=== PATIENT | male | born 1985 | race Caucasian/White ===

== ENCOUNTER 2016-08-11 20:22 | Emergency (ER) | payer SELFPAY ==
[~2016-08-11] VITALS: Ht 180.3 cm; Wt 79.8 kg
[~2016-08-11 20:22] MED LIST: AMOX875T PO; HYDR-971 PO; LORA-434 PO; LORA1TAB PO; MAGN296S PO; ONDA4TAB12 PO; PRED20TA PO
[2016-08-11 20:48] VITALS: BP 116/78
[2016-08-11] MEDS ORDERED: ASPIRIN 81 MG TAB.CHEW PO ONE (21:00)
--- NOTE | 2016-08-11 21:00 | PHYS DOC ---
General Chief Complaint: CHEST PAIN Stated Complaint: CHEST PAIN Time Seen by MD: 20:24 Source: patient, old records Exam Limitations: no limitations Problems: History of Present Illness Initial Comments Pt is 31/M to ED c/o chest tightness, congestion, and ear pain. Pt states for past 4 days he's had chest tightness/burning, some ALVARADO and dry cough. Also with left ear pain and nasal congestion/drainage. No fever/chills/ DUPONT/myalgia, has h/o anxiety took ativan at home no relief. Timing/Duration: constant (4 days) Severity: severe Associated Symptoms: chest pain, cough, other Allergies: Coded Allergies: No Known Drug Allergies (Unverified , 02/24/15) Past Medical History Medical History: no pertinent history Surgical History: noncontributory Psychosocial History: anxiety Social History Smoker: cigarettes, greater than 1 pack/day Alcohol: none Drugs: none Review of Systems Constitutional: denies chills, denies diaphoresis, denies fever, malaise EENTM: denies eye pain, ear paindenies ear discharge, nose congestiondenies throat swelling Respiratory: see HPI Cardiovascular: see HPI Gastrointestinal: denies abdominal pain, denies diarrhea, denies nausea, denies vomiting Genitourinary: denies dysuria, denies frequency, denies hematuria Musculoskeletal: denies back pain, denies joint swelling, denies neck pain Psychiatric/Neurological: denies headache, denies numbness, denies paresthesia Physical Exam General Appearance: no apparent distress Eyes: bilateral eye EOMI, bilateral eye PERRL, bilateral eye normal inspection Ear, Nose, Throat: hearing grossly normal, normal ENT inspection (L TM erythema ) Neck: non-tender, supple Respiratory: other (slight wheeze b/l with good air movement no resp distress) Cardiovascular: normal peripheral pulses, regular rate, rhythm Gastrointestinal: non tender, soft Back: no CVA tenderness, no vertebral tenderness Extremities: non-tender, normal inspection Neurologic/Psychiatric: 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 Pt expressed agreement/understanding with treatment plan. Departure Time of Disposition: 21:40 Disposition: 01 HOME, SELF-CARE Diagnosis: L otitis media, upper respiratory infection, tobac Condition: GOOD Patient Instructions: Otitis Media, Adult, Smoking Cessation, Tips For Success , Upper Respiratory Infection, Adult, [id number]-[id number] Additional Instructions: Drink plenty of fluids to avoid dehydration. Stop smoking, seek medical assistance if necessary. OTC tylenol as needed. OTC cetirizine am, diphenhydramine for evening symptoms. Rx: amoxil, flonase, albuterol Follow up with your doctor in 10 days for recheck. Return to ED with new or changing symptoms. FREDERICK FANG DO Aug 11, 2016 21:00
[2016-08-11 21:23] LABS: HEMOGLOBIN ISTAT 16.3 gm/dL; POTASSIUM ISTAT 3.7 mmol/L (3.5-5.0)
[2016-08-11] MEDS ORDERED: ALBU18HF IH (21:45)
[2016-08-11] MEDS ORDERED: AMOX875T PO (21:45)
[2016-08-11] MEDS ORDERED: FLUT9.9S NS (21:45)
[2016-08-11 21:58] LABS: BARBITURATES NEG (NEG); BENZODIAZEPINES NEG (NEG); CANNABINOIDS NEG (NEG); COCAINE NEG (NEG); METHADONE NEG (NEG); OPIATES NEG (NEG); PHENCYCLIDINE NEG (NEG)
[2016-08-11 21:59] LABS: AMPHETAMINE/METHAMPHETAMINE NEG (NEG)
[2016-08-11] MEDS ORDERED: CEFTRIAXONE IM 1 GM VIAL. IM ONE (22:00)
[2016-08-11 22:23] LABS: BILIRUBIN,URINE NEG (NEG); CLARITY,URINE HAZY; COLOR,URINE YELLOW; GLUCOSE,URINE NEG (NEG); NITRITE,URINE NEG (NEG); UROBILINOGEN,URINE 0.2 mg/dL (0.2 mg/dL)
[2016-08-11 22:24] LABS: BACTERIA,URINE 0 /HPF (0-FEW)
--- NOTE | 2016-08-12 09:13 | RAD ---
AP portable chest radiograph 08/11/2016 Clinical History: Shortness of breath and chest pain for a few days. An AP portable erect digital radiograph of the chest was obtained. Comparison study is dated 03/09/2013. The cardiac and mediastinal silhouettes are within normal limits in size and configuration. No acute pulmonary infiltrate is seen. No pleural effusion or pneumothorax is noted. The osseous structures are grossly intact. Impression: No acute abnormality is seen.
--- NOTE | 2016-08-13 11:57 | EKG ---
[address] [address] Test Date: 2016-08-11 Test Time: 20:37:05 Pat Name: PRATIK HUNT Department: Room: Gender: M [facility] [employer] Clerk: LIVIA : 1985 Requested By: FREDERICK FANG Order Number: [id number] Reading MD: Measurements Intervals [place] Rate: 85 P: 31 OK: 194 QRS: 57 QRSD: 90 T: 43 QT: 338 QTc: 402 Interpretive Statements SINUS RHYTHM NO SPECIFIC ECG ABNORMALITIES RI6.01 Unconfirmed report No previous ECG available for comparison
== END 2016-08-11 22:23 | disposition home or self-care (01) ==
LOC: ER 20:22
DX: J06.9 Acute upper respiratory infection, unspecified (principal); H66.92 Otitis media, unspecified, left ear; R07.9 Chest pain, unspecified; F17.210 Nicotine dependence, cigarettes, uncomplicated
CPT/HCPCS: 36415; 71010; 80047; 80305; 80320; 81001; 84484; 96372; 99285; J0696; G0480; G0481

== ENCOUNTER 2017-02-05 16:32 | Emergency (ER) | payer SELFPAY ==
[~2017-02-05] VITALS: Ht 180.3 cm; Wt 82.6 kg
[~2017-02-05 16:32] MED LIST changes: +ALBU18HF IH; +FLUT9.9S NS; -MAGN296S PO; +MAGN296S9 PO
[2017-02-05 16:45] VITALS: BP 130/82
[2017-02-05] MEDS ORDERED: LIDO:MAALOX 1:1 20 ML SINGLE DOSE PO ONE (17:15)
[2017-02-05] MEDS ORDERED: FAMOTIDINE 20 MG TABLET PO ONE (17:15)
[2017-02-05] MEDS ORDERED: FAMO-63 PO (17:20)
--- NOTE | 2017-02-05 17:20 | PHYS DOC ---
Past History Past Medical History: Anxiety Past Surgical History: No Surgical History Alcohol Use: None Drug Use: None Adult General Chief Complaint Chief Complaint: ABDOMINAL PAIN HPI HPI 32-year-old male comes to the emergency department today with epigastric abdominal pain for last 5 days. The burning sensation that is mild intermittent nonradiating without alleviating factors. He describes pain is sharp also. Currently mild. She reports increased pain with urination but denies polyuria. He denies nausea vomiting fevers or chills. Review of systems is negative for chest pain shortness of breath fevers chills nausea vomiting. All other review of systems is negative unless otherwise noted in history of present illness. ED course: 32-year-old male presenting with epigastric abdominal pain. Afebrile with normal vital signs. Pertinent physical exam:Soft nontender abdomen without rebound tenderness or guarding present. Negative McBurneys point. Negative Bowling sign. No ecchymosis present. Otherwise unremarkable exam. Early appy return precautions given. The patient was then discharged home in stable condition to follow up with their primary care physician over the next 2-3 days. They were to return if their symptoms worsened or if they were concerned for any reason. Hsli-[id number]-[id number] discharge instructions and return precautions were given. Patient's questions were answered to their satisfaction. Patient is comfortable plan. Review of Systems Review of Systems SEE ABOVE. Current Medications Current Medications Current Medications Medications (Trade) Dose Ordered Sig/Justice Start Time Stop Time Status Last Admin Dose Admin Famotidine (Pepcid) 20 mg 1X ONCE 02/05/17 17:15 02/05/17 17:16 Multi-Ingredient Mouthwash/Gargle (Gi Cocktail) 20 ml 1X ONCE 02/05/17 17:15 02/05/17 17:16 Allergies Allergies Allergies Coded Allergies Type Severity Reaction Last Updated Verified No Known Drug Allergies 02/24/15 No Physical Exam Physical Exam SEE ABOVE Constitutional: Well developed, well nourished, no acute distress, non-toxic appearance. [] HENT: Normocephalic, atraumatic, bilateral external ears normal, oropharynx moist, no oral exudates, nose normal. [] Eyes: PERRLA, EOMI, conjunctiva normal, no discharge. [] Neck: Normal range of motion, no tenderness, supple, no stridor. [] Cardiovascular:Heart rate regular rhythm, no murmur [] Lungs & Thorax: Bilateral breath sounds clear to auscultation [] Abdomen: Bowel sounds normal, soft, no tenderness, no masses, no pulsatile masses. [] Skin: Warm, dry, no erythema, no rash. [] Back: No tenderness, no CVA tenderness. [] Extremities: No tenderness, no cyanosis, no clubbing, ROM intact, no edema. [] Neurologic: Alert and oriented X 3, normal motor function, normal sensory function, no focal deficits noted. [] Psychologic: Affect normal, judgement normal, mood normal. [] Current Patient Data Vital Signs Vital Signs Date Time Temp Pulse Resp B/P (MAP) Pulse Ox O2 Delivery O2 Flow Rate FiO2 02/05/17 16:45 98.1 80 16 99 Room Air EKG EKG [] Radiology/Procedures Radiology/Procedures [] Course & Med Decision Making Course & Med Decision Making Pertinent Labs and Imaging studies reviewed. (See chart for details) [] Dragon Disclaimer Dragon Disclaimer This chart was dictated in whole or in part using Voice Recognition software in a busy, high-work load, and often noisy Emergency Department environment. It may contain unintended and wholly unrecognized errors or omissions. Departure Departure: Impression: Primary Impression: Abdominal pain Disposition: HOME, SELF-CARE Condition: STABLE Referrals: ALEXA REYNOLDS MD (PCP) Patient Instructions: Abdominal Pain, Abdominal Pain, Possible Early Appendicitis Additional Instructions: Thank you for allowing us to participate in your care today. Followup with your primary care physician in 3 days if your symptoms do not improve. Call your Primary Doctor tomorrow and inform them of your visit today. If you do not have a primary care provider you can ask for a list of our primary care providers. Return to the emergency department you have any new or concerning findings. This should be evaluated by the primary care physician and any necessary consulting services for continued management within a few days after discharge. Return to emergency room if you have any new or concerning symptoms including but not limited to fever, chills, nausea, vomiting, intractable pain, any new rashes, chest pain, shortness of air, uncontrolled bleeding, difficulty breathing, and/or vision loss. Scripts Famotidine (PEPCID) 20 Mg Tablet 1 TAB PO BID, #10 TAB 0 Refills Prov: TAWANNA VYAS MD 02/05/17 TAWANNA VYAS MD Feb 05, 2017 17:20
== END 2017-02-05 17:46 | disposition home or self-care (01) ==
LOC: ER 16:32
DX: R10.13 Epigastric pain (principal); R30.0 Dysuria; F41.9 Anxiety disorder, unspecified
CPT/HCPCS: 99283

== ENCOUNTER 2017-07-10 11:38 | Emergency (ER) | payer SELFPAY ==
[~2017-07-10] VITALS: Ht 180.3 cm; Wt 82.6 kg
[~2017-07-10 11:38] MED LIST changes: +FAMO-63 PO
[2017-07-10 12:43] LABS: BASO % 1 % (0-3); EOS # 0.1 x10^3/uL (0.0-0.7); EOS % 2 % (0-3); HEMATOCRIT 45.5 % (39.0-53.0); HEMOGLOBIN 15.6 g/dL (13.0-17.5); LYMPH # 1.7 x10^3/uL (1.0-4.8); LYMPH % 35 % (24-48); MEAN CORPUSCULAR HEMOGLOBIN 30 pg (25-35); MEAN CORPUSCULAR HGB CONC 34 g/dL (31-37); MEAN CORPUSCULAR VOLUME 88 fL (79-100); MONO # 0.4 x10^3/uL (0.0-1.1); MONO % 8 % (0-9); NEUT # 2.5 x10^3uL (1.8-7.7); NEUT % 53 % (31-73); PLATELET COUNT 211 x10^3/uL (140-400); RED BLOOD COUNT 5.18 x10^6/uL (4.30-5.70); RED CELL DISTRIBUTION WIDTH 13.9 % (11.5-14.5); WHITE BLOOD COUNT 4.7 x10^3/uL (4.0-11.0)
[2017-07-10 12:52] LABS: ALBUMIN/GLOBULIN RATIO 1.2 (1.0-1.7); GFR 87.2; MAGNESIUM 1.9 mg/dL (1.8-2.4); POTASSIUM 4.1 mmol/L (3.5-5.1); TOTAL BILIRUBIN 0.8 mg/dL (0.2-1.0); TOTAL PROTEIN 7.3 g/dL (6.4-8.2)
[2017-07-10 13:02] LABS: BARBITURATES NEG (NEG); BENZODIAZEPINES POS (NEG); CANNABINOIDS NEG (NEG); COCAINE NEG (NEG); METHADONE NEG (NEG); OPIATES NEG (NEG); PHENCYCLIDINE NEG (NEG)
[2017-07-10 13:03] LABS: AMPHETAMINE/METHAMPHETAMINE NEG (NEG)
[2017-07-10 13:08] LABS: CLARITY,URINE CLEAR; COLOR,URINE YELLOW; GLUCOSE,URINE NEG (NEG)
[2017-07-10 13:09] LABS: BACTERIA,URINE 0 /HPF (0-FEW); BILIRUBIN,URINE NEG (NEG); NITRITE,URINE NEG (NEG); RBC,URINE 0 /HPF (0-2); SQUAMOUS EPITHELIAL CELL,UR OCC /LPF; UROBILINOGEN,URINE 0.2 mg/dL (0.2 mg/dL); WBC,URINE OCC /HPF (0-4)
--- NOTE | 2017-07-10 13:43 | PHYS DOC ---
Past History Past Medical History: Anxiety Past Surgical History: No Surgical History Smoking: Non-smoker Alcohol Use: None Drug Use: None Adult General Chief Complaint Chief Complaint: ANXIETY/PANIC ATTACK HPI HPI 32-year-old male patient with history of longtime anxiety states he used to take lorazepam 1 mg several times a day since age of 15 and his physician recently was concern for dependency to benzodiazepine and was started Zoloft 2 days ago but since this morning she feels hot and shaky. Patient states he took 2 lorazepam this morning and is still has lorazepam at home. She denies suicidal and homicidal ideation and hallucination, nausea and vomiting, palpitation, shortness of breath. Review of Systems Review of Systems Constitutional: Denies fever or chills [] Eyes: Denies change in visual acuity, redness, or eye pain [] HENT: Denies nasal congestion or sore throat [] Respiratory: Denies cough or shortness of breath [] Cardiovascular: No additional information not addressed in HPI [] GI: Denies abdominal pain, nausea, vomiting, bloody stools or diarrhea [] : Denies dysuria or hematuria [] Musculoskeletal: Denies back pain or joint pain [] Integument: Denies rash or skin lesions [] Neurologic: Denies headache, focal weakness or sensory changes [] Endocrine: Denies polyuria or polydipsia [] All other systems were reviewed and found to be within normal limits, except as documented in this note. Allergies Allergies Allergies Coded Allergies Type Severity Reaction Last Updated Verified No Known Drug Allergies 02/24/15 No Physical Exam Physical Exam Constitutional: Well developed, well nourished,milde distress, non-toxic appearance, anxious. [] HENT: Normocephalic, atraumatic Eyes: PERRLA, EOMI, conjunctiva normal, no discharge. [] Neck: Normal range of motion, no tenderness, supple, no stridor. [] Cardiovascular:Heart rate regular rhythm, no murmur [] Lungs & Thorax: Bilateral breath sounds clear to auscultation [] Abdomen: Bowel sounds normal, soft, no tenderness, no masses, no pulsatile masses. [] Skin: Warm, dry, no erythema, no rash. [] Back: No tenderness, no CVA tenderness. [] Extremities: No tenderness, no cyanosis, no clubbing, ROM intact, no edema. [] Neurologic: Alert and oriented X 3, normal motor function, normal sensory function, no focal deficits noted. [] Psychologic: Anxious, judgement normal, mood normal. [] Current Patient Data Vital Signs Vital Signs Date Time Temp Pulse Resp B/P (MAP) Pulse Ox O2 Delivery O2 Flow Rate FiO2 07/10/17 12:47 72 18 136/87 (103) 99 Room Air 07/10/17 11:59 97.2 Lab Results Laboratory Tests Test 07/10/17 12:25 07/10/17 12:43 White Blood Count 4.7 x10^3/uL (4.0-11.0) Red Blood Count 5.18 x10^6/uL (4.30-5.70) Hemoglobin 15.6 g/dL (13.0-17.5) Hematocrit 45.5 % (39.0-53.0) Mean Corpuscular Volume 88 fL (79-100) Mean Corpuscular Hemoglobin 30 pg (25-35) Mean Corpuscular Hemoglobin Concent 34 g/dL (31-37) Red Cell Distribution Width 13.9 % (11.5-14.5) Platelet Count 211 x10^3/uL (140-400) Neutrophils (%) (Auto) 53 % (31-73) Lymphocytes (%) (Auto) 35 % (24-48) Monocytes (%) (Auto) 8 % (0-9) Eosinophils (%) (Auto) 2 % (0-3) Basophils (%) (Auto) 1 % (0-3) Neutrophils # (Auto) 2.5 x10^3uL (1.8-7.7) Lymphocytes # (Auto) 1.7 x10^3/uL (1.0-4.8) Monocytes # (Auto) 0.4 x10^3/uL (0.0-1.1) Eosinophils # (Auto) 0.1 x10^3/uL (0.0-0.7) Basophils # (Auto) 0.0 x10^3/uL (0.0-0.2) Sodium Level 139 mmol/L (136-145) Potassium Level 4.1 mmol/L (3.5-5.1) Chloride Level 103 mmol/L (98-107) Carbon Dioxide Level 32 mmol/L (21-32) Anion Gap 4 (6-14) L Blood Urea Nitrogen 16 mg/dL (8-26) Creatinine 1.0 mg/dL (0.7-1.3) Estimated GFR (Cockcroft-Gault) 87.2 BUN/Creatinine Ratio 16 (6-20) Glucose Level 122 mg/dL (70-99) H Calcium Level 9.0 mg/dL (8.5-10.1) Magnesium Level 1.9 mg/dL (1.8-2.4) Total Bilirubin 0.8 mg/dL (0.2-1.0) Aspartate Amino Transferase (AST) 17 U/L (15-37) Alanine Aminotransferase (ALT) 34 U/L (16-63) Alkaline Phosphatase 56 U/L (46-116) Total Protein 7.3 g/dL (6.4-8.2) Albumin 4.0 g/dL (3.4-5.0) Albumin/Globulin Ratio 1.2 (1.0-1.7) Ethyl Alcohol Level < 10 mg/dL (0-10) Urine Collection Type Unknown Urine Color Yellow Urine Clarity Clear Urine pH 6.5 Urine Specific [place] 1.020 Urine Protein Neg (NEG-TRACE) Urine Glucose (UA) Neg mg/dL (NEG) Urine Ketones (Stick) Neg mg/dL (NEG) Urine Blood Neg (NEG) Urine Nitrite Neg (NEG) Urine Bilirubin Neg (NEG) Urine Urobilinogen Dipstick 0.2 mg/dL (0.2 mg/dL) Urine Leukocyte Esterase Neg (NEG) Urine RBC 0 /HPF (0-2) Urine WBC Occ /HPF (0-4) Urine Squamous Epithelial Cells Occ /LPF Urine Bacteria 0 /HPF (0-FEW) Urine Mucus Mod /LPF Urine Opiates Screen Neg (NEG) Urine Methadone Screen Neg (NEG) Urine Barbiturates Neg (NEG) Urine Phencyclidine Screen Neg (NEG) Urine Amphetamine/Methamphetamine Neg (NEG) Urine Benzodiazepines Screen Pos (NEG) Urine Cocaine Screen Neg (NEG) Urine Cannabinoids Screen Neg (NEG) Urine Ethyl Alcohol Neg (NEG) EKG EKG [] Radiology/Procedures Radiology/Procedures [] Course & Med Decision Making Course & Med Decision Making Pertinent Labs reviewed. (See chart for details) Evaluation of patient in ER showed 32-year-old male patient with history of anxiety who was started on Zoloft 3 days ago. Patient complaining of feeling hot and anxious. Patient had unremarkable physical exam except for anxiety. Labs was unremarkable. Patient currently taking Xanax but asking for medication for anxiety and instructed to follow with his primary care physician. discharge: I've spoken with the patient and/or caregivers. I've explained the patient's condition, diagnosis and treatment plan based on information available to me at this time. I've answered the patient's and/or caregivers questions and addressed any concerns. The patient and/or caregivers have a good understanding the patient's diagnosis, condition and treatment plan as can be expected at this point. Vital signs have been stabilized. The patient's condition is stable for discharge from the emergency department. The patient will pursue further outpatient evaluation with her primary care provider or other designated consulting physician as outlined in the discharge instructions. Patient and/or caregivers are agreeable to this plan of care and follow-up instructions have been explained in detail. The patient and/or caregivers have received these instructions in written format and expressed understanding of these discharge instructions. The patient and her caregivers are aware that if any significant change in condition or worsening of symptoms should prompt him to immediately return to this of the closest emergency department. If an emergent department is not readily available I would encourage him to call 911. Rosannaon Disclaimer Dragon Disclaimer This electronic medical record was generated, in whole or in part, using a voice recognition dictation system. Departure Departure: Impression: Primary Impression: Anxiety Additional Impression: Intolerance of drug Disposition: HOME, SELF-CARE (at 1342) Condition: STABLE Referrals: ALEXA REYNOLDS MD (PCP) Patient Instructions: Anxiety and Panic Attacks Additional Instructions: Follow-up with your primary care physician in 1-2 days Return to ER if not getting better Problem Qualifiers FITZ QUINTERO MD Jul 10, 2017 13:43
[2017-07-10 13:59] VITALS: BP 132/80
== END 2017-07-10 14:00 | disposition home or self-care (01) ==
LOC: ER 11:38
DX: F41.9 Anxiety disorder, unspecified (principal); T43.225A Adverse effect of selective serotonin reuptake inhibitors, initial encounter; Y92.89 Other specified places as the place of occurrence of the external cause
CPT/HCPCS: 36415; 80053; 80307; 81001; 83735; 85025; 99284; G0480; G0479

== ENCOUNTER 2017-08-07 20:21 | Emergency (ER) | payer SELFPAY ==
[~2017-08-07] VITALS: Ht 180.3 cm; Wt 78.6 kg
[2017-08-07 21:00] VITALS: BP 122/68
--- NOTE | 2017-08-07 22:22 | PHYS DOC ---
Past History Past Medical History: Anxiety Past Surgical History: No Surgical History Smoking: Non-smoker Alcohol Use: None Drug Use: None Adult General Chief Complaint Chief Complaint: SHORTNESS OF BREATH HPI HPI 32-year-old male with a history of tobacco abuse and severe anxiety for which he takes a benzodiazepine now presents to the emergency department complaining of anxiety. He denies depression and has no suicidality. After being placed in a room patient told the nurse that he had some left chest wall soreness with cough. He is a chronic tobacco user and has had some nonproductive cough recently. Patient has no high blood pressure high cholesterol diabetes or family history of coronary artery disease or cardiac at young age. He's had no syncope or near syncope no exertional symptoms whatsoever. Denies pleuritic pain. Pain is worse with cough and movement. Review of Systems Review of Systems Constitutional: Denies fever or chills [] Eyes: Denies change in visual acuity, redness, or eye pain [] HENT: Denies nasal congestion or sore throat [] Respiratory: Denies cough or shortness of breath [] Cardiovascular: No additional information not addressed in HPI [] GI: Denies abdominal pain, nausea, vomiting, bloody stools or diarrhea [] : Denies dysuria or hematuria [] Musculoskeletal: Denies back pain or joint pain [] Integument: Denies rash or skin lesions [] Neurologic: Denies headache, focal weakness or sensory changes [] Endocrine: Denies polyuria or polydipsia [] All other systems were reviewed and found to be within normal limits, except as documented in this note. Allergies Allergies Allergies Coded Allergies Type Severity Reaction Last Updated Verified No Known Drug Allergies 02/24/15 No Physical Exam Physical Exam Constitutional: Well developed, well nourished, no acute distress, non-toxic appearance. [] HENT: Normocephalic, atraumatic, bilateral external ears normal, oropharynx moist, no oral exudates, nose normal. [] Eyes: PERRLA, EOMI, conjunctiva normal, no discharge. [] Neck: Normal range of motion, no tenderness, supple, no stridor. [] Cardiovascular:Heart rate regular rhythm, no murmur [] Lungs & Thorax: Bilateral breath sounds clear to auscultation [] Abdomen: Bowel sounds normal, soft, no tenderness, no masses, no pulsatile masses. [] Skin: Warm, dry, no erythema, no rash. [] Back: No tenderness, no CVA tenderness. [] Extremities: No tenderness, no cyanosis, no clubbing, ROM intact, no edema. [] Neurologic: Alert and oriented X 3, normal motor function, normal sensory function, no focal deficits noted. [] Psychologic: Affect normal, judgement normal, mood normal. [] Current Patient Data Vital Signs Vital Signs Date Time Temp Pulse Resp B/P (MAP) Pulse Ox O2 Delivery O2 Flow Rate FiO2 08/07/17 20:21 97.8 76 16 100 Room Air EKG EKG EKG with normal sinus rhythm normal axis no tachycardia no STEMI interpreted by me[] Radiology/Procedures Radiology/Procedures [] Course & Med Decision Making Course & Med Decision Making Pertinent Labs and Imaging studies reviewed. (See chart for details) Signs and symptoms consistent with significant anxiety component of patient's presentation with what appears to be very mild chest wall pain secondary to occasional cough. EKG benign. Patient with no evidence of acute coronary syndrome or pleuritic pain. Vital signs are unremarkable. Normal respiratory rate and pulse ox and clear lungs bilaterally. No further workup or treatment is indicated at this time. Patient aware to follow-up with PCP and he is and his significant other agree with this plan. Strict return precautions given [] Dragon Disclaimer Dragon Disclaimer This electronic medical record was generated, in whole or in part, using a voice recognition dictation system. Departure Departure: Impression: Primary Impression: Anxiety Additional Impressions: Tobacco abuse Chest wall pain Cough in adult Disposition: 01 HOME, SELF-CARE Condition: GOOD Referrals: ALEXA REYNOLDS MD (PCP) Patient Instructions: Anxiety and Panic Attacks, Lszv-vw-Stwn, Smoking Cessation, Tips For Success Additional Instructions: It appears that you've been experiencing an anxiety attack this evening. Take your anxiety medication as previously prescribed as needed. It's critically important that you quit smoking to optimize your long-term health. If you have cough use Mucinex DM [id number] medication. He have any discomfort from cough take ibuprofen every 6 hours. Follow-up with your doctor tomorrow and return immediately for new severe worsening symptoms Problem Qualifiers MARGAUX MERCADO MD Aug 07, 2017 22:22
--- NOTE | 2017-08-08 00:09 | EKG ---
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
== END 2017-08-07 22:19 | disposition home or self-care (01) ==
LOC: ER 20:21
DX: F41.9 Anxiety disorder, unspecified (principal); Z72.0 Tobacco use
CPT/HCPCS: 93005; 99284

== ENCOUNTER → 2017-08-26 | Outpatient (CLI) | payer SELFPAY ==
[2017-08-07 21:00] VITALS: BP 122/68
--- NOTE | 2017-08-26 10:38 | CARD ---
MR#: [id number] Date of Study: 08/26/2017 Ordering Physician: JESSICA ESPINOZA, Referring Physician: JESSICA ESPINOZA, Tech: ZAFAR Tavares APPROVED REPORT EXAM: Two-dimensional and M-mode echocardiogram with Doppler and color Doppler. Other Information Quality : Good INDICATION Palpitations Dyspnea 2D DIMENSIONS Left Atrium(2D)3.4 (1.6-4.0cm)IVSd1.0 (0.7-1.1cm) Aortic Root(2D)2.8 (2.0-3.7cm)LVDd4.4 (3.9-5.9cm) LVOT Diameter2.3 (1.8-2.4cm)IVSs1.0 (0.8-1.2cm) LVDs2.5 (2.5-4.0cm)FS (%) 26.0 % SV67.0 mlLVEF(%)53.0 (>50%) Mitral Valve MV E Bfwehuvx00.1cm/sMV DECEL [id number] MV A Oxkfkusa02.7cm/sE/A Ratio1.2 Tricuspid Valve TR P. [id number]/sRAP [id number] TR Peak Gr.[id number] LEFT VENTRICLE The left ventricle is normal size. There is normal left ventricular wall thickness. The Ejection Frac tion is 50-55%. There is normal LV segmental wall motion. The left ventricular diastolic function and filling is normal for age. RIGHT VENTRICLE The right ventricle is normal size. There is normal right ventricular wall thickness. The right ventr icular systolic function is normal. ATRIA The left atrium size is normal. The right atrium size is normal. The interatrial septum is intact wit h no evidence for an atrial septal defect or patent foramen ovale as noted on 2-D or Doppler imaging. AORTIC VALVE The aortic valve is trileaflet. Doppler and Color Flow revealed trace aortic regurgitation. There is no significant aortic valvular stenosis. MITRAL VALVE The mitral valve is normal in structure and function. There is no evidence of mitral valve prolapse. There is no mitral valve stenosis. Doppler and Color Flow revealed no mitral valve regurgitation note d. TRICUSPID VALVE The tricuspid valve is normal in structure and function. Doppler and Color Flow revealed trace tricus pid regurgitation. There is no tricuspid valve stenosis. PULMONIC VALVE The pulmonic valve is not well visualized. Doppler and Color Flow revealed no pulmonic valvular regur gitation. There is no pulmonic valvular stenosis. GREAT VESSELS The aortic root is normal in size. The IVC is normal in size and collapses >50% with inspiration. PERICARDIAL EFFUSION There is no pleural effusion. There is no evidence of significant pericardial effusion. Critical Notification Critical Value: No <Conclusion> The Ejection Fraction is 50-55%. There is normal LV segmental wall motion. Signed by : Jessica Espinoza, Electronically Approved : 08/26/2017 10:36:58
== END | disposition home or self-care (01) ==
LOC: ECHO 08:34
PROVIDERS: ATTEND Internal Medicine Cardiovascular Disease
DX: R00.2 Palpitations (principal); R06.09 Other forms of dyspnea
CPT/HCPCS: 93306

== ENCOUNTER 2017-10-04 12:08 | Emergency (ER) | payer SELFPAY ==
--- NOTE | 2017-10-04 12:44 | PHYS DOC ---
Past History Past Medical History: Anxiety Past Surgical History: No Surgical History Smoking: Non-smoker Alcohol Use: None Drug Use: None Adult General Chief Complaint Chief Complaint: COUGH HPI HPI 32-year-old male presents with 2 day history of cough and shortness of breath. He states that he feels like he has no energy. This is unusual for him. He has had a cough that is productive of dark colored sputum. He denies fever or chills. He denies chest pain. Does admit to a chest tightness that comes and goes and is worse with exertion. This is only been the last 2 days. Patient is a smoker for 18 years. He denies diaphoresis, nausea, vomiting, diarrhea, constipation. Review of Systems Review of Systems Constitutional: Denies fever or chills [] Eyes: Denies change in visual acuity, redness, or eye pain [] HENT: Denies nasal congestion or sore throat [] Respiratory: Has productive cough and mild shortness of breath [] Cardiovascular: No additional information not addressed in HPI [] GI: Denies abdominal pain, nausea, vomiting, bloody stools or diarrhea [] : Denies dysuria or hematuria [] Musculoskeletal: Denies back pain or joint pain [] Integument: Denies rash or skin lesions [] Neurologic: Denies headache, focal weakness or sensory changes [] Endocrine: Denies polyuria or polydipsia [] All other systems were reviewed and found to be within normal limits, except as documented in this note. Current Medications Current Medications Current Medications Medications (Trade) Dose Ordered Sig/Justice Start Time Stop Time Status Last Admin Dose Admin Sodium Chloride 1,000 ml @ 1,000 mls/hr Q1H 10/04/17 12:23 10/04/17 13:22 UNV Allergies Allergies Allergies Coded Allergies Type Severity Reaction Last Updated Verified No Known Drug Allergies 02/24/15 No Physical Exam Physical Exam Constitutional: Well developed, well nourished, no acute distress, non-toxic appearance. [] HENT: Normocephalic, atraumatic, bilateral external ears normal, oropharynx moist, no oral exudates, nose normal. [] Eyes: PERRLA, EOMI, conjunctiva normal, no discharge. [] Neck: Normal range of motion, no tenderness, supple, no stridor. [] Cardiovascular:Heart rate regular rhythm, no murmur [] Lungs & Thorax: Bilateral breath sounds clear to auscultation [] Abdomen: Bowel sounds normal, soft, no tenderness, no masses, no pulsatile masses. [] Skin: Warm, dry, no erythema, no rash. [] Back: No tenderness, no CVA tenderness. [] Extremities: No tenderness, no cyanosis, no clubbing, ROM intact, no edema. [] Neurologic: Alert and oriented X 3, normal motor function, normal sensory function, no focal deficits noted. [] Psychologic: Affect normal, judgement normal, mood normal. [] Current Patient Data Vital Signs Vital Signs Date Time Temp Pulse Resp B/P (MAP) Pulse Ox O2 Delivery O2 Flow Rate FiO2 10/04/17 12:15 97.7 73 18 96 Room Air EKG EKG [] Radiology/Procedures Radiology/Procedures CHEST PA LATERAL Clinical indications: Cough with short of breath and weakness x 2-3 days, pt shielded COMPARISON: August 11, 2016. Findings: No acute lung infiltrate or pleural effusion or pulmonary edema or lung mass or pneumothorax is seen. The heart size, pulmonary vasculature, mediastinum and both rosales are unremarkable. The osseous structures appear intact. Impression: No acute radiographic abnormality is seen. Electronically signed by: Sal Corado MD (10/04/2017 1:02 PM) [facility][] Course & Med Decision Making Course & Med Decision Making Pertinent Labs and Imaging studies reviewed. (See chart for details) The patient's labs are unremarkable. His chest x-rays negative. I believe he is either having complications from his smoking, or he is coming down with a viral illness. He is stable for discharge. [] Dragon Disclaimer Dragon Disclaimer This electronic medical record was generated, in whole or in part, using a voice recognition dictation system. Departure Departure: Referrals: ALEXA REYNOLDS MD (PCP) LETICIA MASTERSON DO Oct 04, 2017 12:44
--- NOTE | 2017-10-04 12:57 | EKG ---
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
[2017-10-04] MEDS: IV NORMAL SALINE 1,000ML 1,000 ML IV SCH (13:00)
--- NOTE | 2017-10-04 13:06 | RAD ---
CHEST PA LATERAL Clinical indications: Cough with short of breath and weakness x 2-3 days, pt shielded COMPARISON: August 11, 2016. Findings: No acute lung infiltrate or pleural effusion or pulmonary edema or lung mass or pneumothorax is seen. The heart size, pulmonary vasculature, mediastinum and both rosales are unremarkable. The osseous structures appear intact. Impression: No acute radiographic abnormality is seen. Electronically signed by: Sal Corado MD (10/04/2017 1:02 PM) [facility]
[2017-10-04 13:11] LABS: BASO % 0 % (0-3); EOS # 0.1 x10^3/uL (0.0-0.7); EOS % 2 % (0-3); HEMATOCRIT 47.3 % (39.0-53.0); HEMOGLOBIN 16.2 g/dL (13.0-17.5); LYMPH # 1.9 x10^3/uL (1.0-4.8); LYMPH % 39 % (24-48); MEAN CORPUSCULAR HEMOGLOBIN 30 pg (25-35); MEAN CORPUSCULAR HGB CONC 34 g/dL (31-37); MEAN CORPUSCULAR VOLUME 88 fL (79-100); MONO # 0.4 x10^3/uL (0.0-1.1); MONO % 9 % (0-9); NEUT # 2.4 x10^3uL (1.8-7.7); NEUT % 49 % (31-73); PLATELET COUNT 220 x10^3/uL (140-400); RED BLOOD COUNT 5.36 x10^6/uL (4.30-5.70); RED CELL DISTRIBUTION WIDTH 12.9 % (11.5-14.5); WHITE BLOOD COUNT 4.9 x10^3/uL (4.0-11.0)
[2017-10-04 13:16] LABS: CALCIUM 9.1 mg/dL (8.5-10.1); GFR 87.2; POTASSIUM 3.8 mmol/L (3.5-5.1)
[2017-10-04 13:36] VITALS: BP 106/59
== END 2017-10-04 13:37 | disposition home or self-care (01) ==
LOC: ER 12:08
DX: B34.9 Viral infection, unspecified (principal); F41.9 Anxiety disorder, unspecified
CPT/HCPCS: 36415; 71046; 80048; 85025; 93005; 96360; 99285-25; J7030

== ENCOUNTER 2018-03-07 11:36 | Emergency (ER) | payer SELFPAY ==
[~2018-03-07] VITALS: Ht 180.3 cm; Wt 82.6 kg
[~2018-03-07 11:36] MED LIST changes: +LORA-254 PO; -LORA-434 PO; -LORA1TAB PO
[2018-03-07 11:45] VITALS: BP 127/72
--- NOTE | 2018-03-07 12:06 | ED.ADGEN ---
Past History Past Medical History: Anxiety, Depression, Other Past Surgical History: No Surgical History Smoking: Non-smoker Alcohol Use: None Drug Use: None Adult General Chief Complaint Chief Complaint Left knee pain HPI HPI Patient is a 33-year-old male presents with left knee pain after being stuck with a locust thorn yesterday afternoon while kneeling. Patient states he was able to remove intact thorn from the lower medial suprapatellar region. Reports deep pain with palpation, movement. On left knee exam, the patient does not have any deformity, swelling and inflammation over joint capsule, there is approximately 0.5 cm area over the medial suprapatellar ED physician consistent with puncture wound. There is minimal erythema, no induration, drainage or swelling to this region. Patient reports pain with range of motion and weightbearing. No other acute symptoms or complaints. Tetanus is up-to-date.[] Review of Systems Review of Systems ReView symptoms as per history of present illness. All other systems were reviewed and found to be within normal limits, except as documented in this note. Allergies Allergies Allergies Coded Allergies Type Severity Reaction Last Updated Verified No Known Drug Allergies 02/24/15 No Physical Exam Physical Exam Constitutional: Well developed, well nourished, no acute distress, non-toxic appearance. Skin: Warm, dry, no erythema, no rash. [] Back: No tenderness, no CVA tenderness. [] Extremities: Left knee, no deformity, swelling, tenderness or inflammation over joint capsule, there is approximately 0.5 cm area over the medial suprapatellar ED physician consistent with puncture wound. There is minimal erythema, no induration, drainage or swelling to this region [] Neurologic: Alert and oriented X 3, normal motor function, normal sensory function, no focal deficits noted. [] Current Patient Data Vital Signs Vital Signs Date Time Temp Pulse Resp B/P (MAP) Pulse Ox O2 Delivery O2 Flow Rate FiO2 03/07/18 11:45 Room Air 03/07/18 11:45 98.7 93 20 98 EKG EKG [] Radiology/Procedures Radiology/Procedures [Left knee x-ray:] Course & Med Decision Making Course & Med Decision Making Pertinent Labs and Imaging studies reviewed. (See chart for details) [Patioent decided he did not wish to wait for the x-ray decided to leave the emergency department AGAINST MEDICAL ADVICE prior to review of x-ray and prior to prescribing antibiotics. He prefers to follow-up with his primary care provider.] Final Impression Final Impression [Left knee injury] Lei Disclaimer Lei Disclaimer This electronic medical record was generated, in whole or in part, using a voice recognition dictation system. LETICIA RAMOS DO Mar 07, 2018 12:06
== END 2018-03-07 12:31 | disposition left against medical advice (07) ==
LOC: ER 11:36
DX: S81.032A Puncture wound without foreign body, left knee, initial encounter (principal); F41.9 Anxiety disorder, unspecified; F32.9 Major depressive disorder, single episode, unspecified; W60.XXXA Contact with nonvenomous plant thorns and spines and sharp leaves, initial encounter; Y93.89 Activity, other specified; Y92.89 Other specified places as the place of occurrence of the external cause; Y99.8 Other external cause status
CPT/HCPCS: 99281

== ENCOUNTER 2018-05-30 12:48 | Emergency (ER) | payer SELFPAY ==
[~2018-05-30] VITALS: Ht 180.3 cm; Wt 83.9 kg
[~2018-05-30 12:48] MED LIST changes: -ALBU18HF IH; +ALBU2.5V8 IH; +HYDR-3165 PO; -HYDR-971 PO
[2018-05-30 13:21] LABS: BASO % 1 % (0-3); EOS # 0.1 x10^3/uL (0.0-0.7); EOS % 1 % (0-3); HEMATOCRIT 49.4 % (39.0-53.0); HEMOGLOBIN 16.9 g/dL (13.0-17.5); LYMPH # 2.7 x10^3/uL (1.0-4.8); LYMPH % 33 % (24-48); MEAN CORPUSCULAR HEMOGLOBIN 30 pg (25-35); MEAN CORPUSCULAR HGB CONC 34 g/dL (31-37); MEAN CORPUSCULAR VOLUME 87 fL (79-100); MONO # 0.8 x10^3/uL (0.0-1.1); MONO % 9 % (0-9); NEUT # 4.5 x10^3uL (1.8-7.7); NEUT % 56 % (31-73); PLATELET COUNT 247 x10^3/uL (140-400); RED BLOOD COUNT 5.68 x10^6/uL (4.30-5.70); RED CELL DISTRIBUTION WIDTH 13.6 % (11.5-14.5); WHITE BLOOD COUNT 8.2 x10^3/uL (4.0-11.0)
[2018-05-30 13:24] LABS: CALCIUM 9.1 mg/dL (8.5-10.1); CREATININE 1.1 mg/dL (0.7-1.3); GFR 77.6; POTASSIUM 3.6 mmol/L (3.5-5.1)
--- NOTE | 2018-05-30 14:27 | ED.ADGEN ---
Past History Past Medical History: Anxiety, Depression Past Surgical History: No Surgical History Smoking: Non-smoker Alcohol Use: None Drug Use: None Adult General Chief Complaint Chief Complaint Chest pain palpitations HPI HPI Patient is a[33-year-old male with history of anxiety and PTSD who presents with intermittent chest pain with palpitations starting this morning. Patient took 2 lorazepam and Prozac prior to ED arrival with limited improvement. Reports tremors and persistent anxiety rest. Denies dyspnea with exertion, nausea vomiting or sweats. No abdominal pain. Patient was admitted to this facility one month ago for palpitations and had an echocardiogram reported to be normal. X or alcohol.,[] Review of Systems Review of Systems Review of symptoms as per history of present illness. All other review symptoms are negative. All other systems were reviewed and found to be within normal limits, except as documented in this note. Allergies Allergies Allergies Coded Allergies Type Severity Reaction Last Updated Verified No Known Drug Allergies 02/24/15 No Physical Exam Physical Exam Constitutional: Well developed, well nourished, no acute distress, non-toxic appearance. [] HENT: Normocephalic, atraumatic, bilateral external ears normal, oropharynx moist, no oral exudates, nose normal. [] Eyes: PERRLA, EOMI, conjunctiva normal, no discharge. [] Neck: Normal range of motion, no tenderness, supple, no stridor. [] Cardiovascular:Heart rate regular rhythm[] Lungs & Thorax: Bilateral breath sounds clear to auscultation [] Abdomen: Bowel sounds normal, soft, no tenderness. [] Skin: Warm, dry, no erythema, no rash. [] Back: No tenderness, no CVA tenderness. [] Extremities: No tenderness, no cyanosis, no clubbing, ROM intact, no edema. [] Neurologic: Alert and oriented X 3, normal motor function, normal sensory function, no focal deficits noted. Loss upper extremities. [] Psychologic: Affect anxious,. [] Current Patient Data Vital Signs Vital Signs Date Time Temp Pulse Resp B/P (MAP) Pulse Ox O2 Delivery O2 Flow Rate FiO2 05/30/18 13:40 84 14 129/72 (91) 97 Room Air 05/30/18 12:52 98.5 Lab Results Laboratory Tests Test 05/30/18 12:57 White Blood Count 8.2 x10^3/uL (4.0-11.0) Red Blood Count 5.68 x10^6/uL (4.30-5.70) Hemoglobin 16.9 g/dL (13.0-17.5) Hematocrit 49.4 % (39.0-53.0) Mean Corpuscular Volume 87 fL (79-100) Mean Corpuscular Hemoglobin 30 pg (25-35) Mean Corpuscular Hemoglobin Concent 34 g/dL (31-37) Red Cell Distribution Width 13.6 % (11.5-14.5) Platelet Count 247 x10^3/uL (140-400) Neutrophils (%) (Auto) 56 % (31-73) Lymphocytes (%) (Auto) 33 % (24-48) Monocytes (%) (Auto) 9 % (0-9) Eosinophils (%) (Auto) 1 % (0-3) Basophils (%) (Auto) 1 % (0-3) Neutrophils # (Auto) 4.5 x10^3uL (1.8-7.7) Lymphocytes # (Auto) 2.7 x10^3/uL (1.0-4.8) Monocytes # (Auto) 0.8 x10^3/uL (0.0-1.1) Eosinophils # (Auto) 0.1 x10^3/uL (0.0-0.7) Basophils # (Auto) 0.0 x10^3/uL (0.0-0.2) Sodium Level 144 mmol/L (136-145) Potassium Level 3.6 mmol/L (3.5-5.1) Chloride Level 105 mmol/L (98-107) Carbon Dioxide Level 30 mmol/L (21-32) Anion Gap 9 (6-14) Blood Urea Nitrogen 16 mg/dL (8-26) Creatinine 1.1 mg/dL (0.7-1.3) Estimated GFR (Cockcroft-Gault) 77.6 Glucose Level 93 mg/dL (70-99) Calcium Level 9.1 mg/dL (8.5-10.1) Troponin I Quantitative < 0.017 ng/mL (0-0.055) EKG EKG [EKG: Normal sinus rhythm, no acute ST-T wave changes.] Radiology/Procedures Radiology/Procedures [] Course & Med Decision Making Course & Med Decision Making Pertinent Labs and Imaging studies reviewed. (See chart for details) [Symptoms resolved in the emergency department. Blood pressure, heart rate improved. Recommend continuing current medications and following up with PCP for further management. Of note, patient also describes mental pain and is currently on clindamycin. Will prescribe hydrocodone until he can follow-up with the dentist. Return precautions reviewed.] Final Impression Final Impression [1 anxiety state 2. Dental pain] Dragon Disclaimer Dragon Disclaimer This electronic medical record was generated, in whole or in part, using a voice recognition dictation system. LETICIA RAMOS DO May 30, 2018 14:27
[2018-05-30 14:30] VITALS: BP 111/66
[2018-05-30] MEDS ORDERED: HYDR-3165 PO (14:31)
--- NOTE | 2018-06-02 08:42 | EKG ---
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
== END 2018-05-30 14:42 | disposition home or self-care (01) ==
LOC: ER 12:48
DX: F41.9 Anxiety disorder, unspecified (principal); K08.89 Other specified disorders of teeth and supporting structures; F32.9 Major depressive disorder, single episode, unspecified
CPT/HCPCS: 36415; 80048; 84484; 85025; 93005; 99284

== ENCOUNTER 2018-06-03 12:45 | Emergency (ER) | payer SELFPAY ==
[~2018-06-03] VITALS: Ht 180.3 cm; Wt 79.8 kg
[2018-06-03] MEDS ORDERED: IV NORMAL SALINE 1,000ML 1,000 ML IV SCH (13:09)
--- NOTE | 2018-06-03 13:18 | EKG ---
[address] [address] Test Date: 2018-06-03 Test Time: 12:52:01 Pat Name: PRATIK HUNT Department: Room: Gender: M Knotter: : 1985 Requested By: RUFUS SHAFFER Order Number: [id number] Reading MD: Antony Wilkes MD Measurements Intervals [place] Rate: 119 P: 17 ID: 192 QRS: 51 QRSD: 86 T: 39 QT: 296 QTc: 423 Interpretive Statements SINUS TACHYCARDIA NON-SPECIFIC ST/T CHANGES Electronically Signed On 06-08-2018 9:34:48 [employer]LLAR [employer]ARCHER by Antony Wilkes MD
[2018-06-03 13:24] LABS: BASO % 1 % (0-3); EOS # 0.1 x10^3/uL (0.0-0.7); EOS % 1 % (0-3); HEMATOCRIT 48.1 % (39.0-53.0); HEMOGLOBIN 16.8 g/dL (13.0-17.5); LYMPH # 2.2 x10^3/uL (1.0-4.8); LYMPH % 29 % (24-48); MEAN CORPUSCULAR HEMOGLOBIN 30 pg (25-35); MEAN CORPUSCULAR HGB CONC 35 g/dL (31-37); MEAN CORPUSCULAR VOLUME 87 fL (79-100); MONO # 0.6 x10^3/uL (0.0-1.1); MONO % 8 % (0-9); NEUT # 4.7 x10^3uL (1.8-7.7); NEUT % 62 % (31-73); PLATELET COUNT 223 x10^3/uL (140-400); RED BLOOD COUNT 5.56 x10^6/uL (4.30-5.70); RED CELL DISTRIBUTION WIDTH 13.1 % (11.5-14.5); WHITE BLOOD COUNT 7.6 x10^3/uL (4.0-11.0)
[2018-06-03] MEDS ORDERED: KETOROLAC 15 MG/ML VIAL. IV ONE (13:30)
--- NOTE | 2018-06-03 13:32 | RAD ---
EXAM: Chest, single view. HISTORY: Chest pain. COMPARISON: 10/04/2017 FINDINGS: A frontal view of the chest is obtained. There is no infiltrate, pleural effusion or pneumothorax. The heart is normal in size. IMPRESSION: No acute pulmonary finding. Electronically signed by: Atiya aGines MD (06/03/2018 1:27 PM) [place] [id number]
[2018-06-03 13:35] LABS: ALBUMIN/GLOBULIN RATIO 1.1 (1.0-1.7); CALCIUM 9.1 mg/dL (8.5-10.1); CREATININE 1.1 mg/dL (0.7-1.3); GFR 77.6; POTASSIUM 3.8 mmol/L (3.5-5.1); TOTAL BILIRUBIN 0.6 mg/dL (0.2-1.0); TOTAL PROTEIN 7.7 g/dL (6.4-8.2)
[2018-06-03 13:50] VITALS: BP 117/60
[2018-06-03] MEDS ORDERED: MELO7.5T29 PO (13:59)
--- NOTE | 2018-06-03 14:00 | PHYS DOC ---
Past History Past Medical History: Anxiety, Depression Past Surgical History: Other Smoking: Non-smoker Additional Smoking Information: 1 PPD Alcohol Use: None Drug Use: None Adult General Chief Complaint Chief Complaint: CHEST PAIN HPI HPI Patient is a 33 year old male who presents with chest pain and palpitations that started at approximately 3:00 this morning. Patient is feeling skipped beats. No worsening of the symptoms with exertion. No radiation of discomfort. No nausea or vomiting. Patient has also felt hot and cold flashes at times. No shaking chills or bright girders. Patient did not get the flu vaccine this year. There has been no cough. Patient did have a tooth extracted due to infection yesterday. He has been on clindamycin for this.[] Review of Systems Review of Systems Constitutional: See history of present illness[] Eyes: Denies change in visual acuity, redness, or eye pain [] HENT: Denies nasal congestion or sore throat [] Respiratory: Denies cough or shortness of breath [] Cardiovascular: No additional information not addressed in HPI [] GI: Denies abdominal pain, nausea, vomiting, bloody stools or diarrhea [] : Denies dysuria or hematuria [] Musculoskeletal: Denies back pain or joint pain [] Integument: Denies rash or skin lesions [] Neurologic: Denies headache, focal weakness or sensory changes [] Endocrine: Denies polyuria or polydipsia [] All other systems were reviewed and found to be within normal limits, except as documented in this note. Current Medications Current Medications Current Medications Medications (Trade) Dose Ordered Sig/Justice Start Time Stop Time Status Last Admin Dose Admin Ketorolac Tromethamine (Toradol 15mg Vial) 15 mg 1X ONCE 06/03/18 13:30 06/03/18 13:31 DC 06/03/18 13:23 15 MG Sodium Chloride 1,000 ml @ 1,000 mls/hr Q1H 06/03/18 13:09 06/03/18 14:08 06/03/18 13:22 1,000 MLS/HR Allergies Allergies Allergies Coded Allergies Type Severity Reaction Last Updated Verified No Known Drug Allergies 02/24/15 No Physical Exam Physical Exam Constitutional: Well developed, well nourished, no acute distress, non-toxic appearance. [] HENT: Normocephalic, atraumatic, bilateral external ears normal, oropharynx moist, no oral exudates, nose normal. [] Eyes: PERRLA, EOMI, conjunctiva normal, no discharge. [] Neck: Normal range of motion, no tenderness, supple, no stridor. [] Cardiovascular:Heart rate is tachycardic with a regular rhythm, no murmur [] Lungs & Thorax: Bilateral breath sounds clear to auscultation [] Abdomen: Bowel sounds normal, soft, no tenderness, no masses, no pulsatile masses. [] Skin: Warm, dry, no erythema, no rash. [] Back: No tenderness, no CVA tenderness. [] Extremities: No tenderness, no cyanosis, no clubbing, ROM intact, no edema. [] Neurologic: Alert and oriented X 3, normal motor function, normal sensory function, no focal deficits noted. [] Psychologic: Affect normal, judgement normal, mood normal. [] Current Patient Data Vital Signs Vital Signs Date Time Temp Pulse Resp B/P (MAP) Pulse Ox O2 Delivery O2 Flow Rate FiO2 06/03/18 12:48 97.8 124 20 97 Room Air Lab Results Laboratory Tests Test 06/03/18 12:58 White Blood Count 7.6 x10^3/uL (4.0-11.0) Red Blood Count 5.56 x10^6/uL (4.30-5.70) Hemoglobin 16.8 g/dL (13.0-17.5) Hematocrit 48.1 % (39.0-53.0) Mean Corpuscular Volume 87 fL (79-100) Mean Corpuscular Hemoglobin 30 pg (25-35) Mean Corpuscular Hemoglobin Concent 35 g/dL (31-37) Red Cell Distribution Width 13.1 % (11.5-14.5) Platelet Count 223 x10^3/uL (140-400) Neutrophils (%) (Auto) 62 % (31-73) Lymphocytes (%) (Auto) 29 % (24-48) Monocytes (%) (Auto) 8 % (0-9) Eosinophils (%) (Auto) 1 % (0-3) Basophils (%) (Auto) 1 % (0-3) Neutrophils # (Auto) 4.7 x10^3uL (1.8-7.7) Lymphocytes # (Auto) 2.2 x10^3/uL (1.0-4.8) Monocytes # (Auto) 0.6 x10^3/uL (0.0-1.1) Eosinophils # (Auto) 0.1 x10^3/uL (0.0-0.7) Basophils # (Auto) 0.0 x10^3/uL (0.0-0.2) Prothrombin Time 9.5 SEC (9.4-11.4) Prothrombin Time INR 1.0 (0.9-1.1) D-Dimer ([place]) 0.33 mg/L (0.00-0.50) Troponin I Quantitative < 0.017 ng/mL (0-0.055) EKG EKG EKG shows a sinus tachycardia at 119 bpm, normal axis, normal QTC, no ST elevations, interpreted by me at 1300[] Radiology/Procedures Radiology/Procedures Chest, single view. HISTORY: Chest pain. COMPARISON: 10/04/2017 FINDINGS: A frontal view of the chest is obtained. There is no infiltrate, pleural effusion or pneumothorax. The heart is normal in size. IMPRESSION: No acute pulmonary finding.[] Course & Med Decision Making Course & Med Decision Making Pertinent Labs and Imaging studies reviewed. (See chart for details) ED course: Patient arrived, was placed in bed, tolerated exam well. Patient did get significant relief with the Toradol as well as IV fluids significant immediately improved his heart rate to the 80s. After the lab and imaging findings returned, these were discussed with the patient who voiced understanding. All questions were answered. Medical decision making: There is no evidence of pneumonia, pneumothorax, acute coronary syndrome, pulmonary embolism, dissecting thoracic aneurysm, nor esophageal rupture. The symptoms may be due to patient's underlying anxiety issues, may also be due to bacterial released from his tooth extraction. Do not hear any murmurs so doubt endocarditis at this time.[] Dragon Disclaimer Dragon Disclaimer This electronic medical record was generated, in whole or in part, using a voice recognition dictation system. Departure Departure: Impression: Primary Impression: Chest pain Disposition: 01 HOME, SELF-CARE Condition: GOOD Referrals: ALEXA REYNOLDS MD (PCP) Follow-up in 2 days Patient Instructions: Chest Pain (Nonspecific) Additional Instructions: Drink plenty of fluids. Follow-up with your regular doctor in 2 days. Return to the ER if worsening discomfort, difficulty breathing, or any other concerns. Scripts Meloxicam (MELOXICAM) 7.5 Mg Tablet 7.5 MG PO DAILY for PAIN, #20 TAB Prov: RUFUS HSAFFER DO 06/03/18 Problem Qualifiers Primary Impression: Chest pain Chest pain type: unspecified Qualified Codes: R07.9 - Chest pain, unspecified RUFUS SHAFFER DO Jun 03, 2018 14:00
== END 2018-06-03 14:00 | disposition home or self-care (01) ==
LOC: ER 12:45
DX: R07.89 Other chest pain (principal); F41.9 Anxiety disorder, unspecified; F32.9 Major depressive disorder, single episode, unspecified; F17.200 Nicotine dependence, unspecified, uncomplicated
CPT/HCPCS: 36415; 71045; 80053; 83880; 84484; 85025; 85379; 85610; 93005; 96374; 99284; J1885; J7030

== ENCOUNTER 2018-07-31 11:03 | Emergency (ER) | payer SELFPAY ==
[~2018-07-31] VITALS: Ht 180.3 cm; Wt 79.4 kg
[~2018-07-31 11:03] MED LIST changes: +MELO7.5T29 PO
[2018-07-31 11:17] VITALS: BP 127/80
--- NOTE | 2018-07-31 11:26 | PHYS DOC ---
Past History Past Medical History: Anxiety, Depression, Other Past Surgical History: Other Smoking: Non-smoker Alcohol Use: None Drug Use: None Adult General Chief Complaint Chief Complaint: GI PROBLEM HPI HPI 33-year-old male presents with abdominal pain and rectal bleeding. Patient states that he has had abdominal pain for the last 1-2 days that his right lower quadrant and intermittent. He describes the pain as a sharp sensation that comes and goes. Nothing seems to make it better or worse. He has had some nausea, but no vomiting. Patient also reports rectal bleeding for the last 3 days with bowel movement. He said it is several drops of bright red blood. The patient was having difficulty with constipation last week and took magnesium citrate 6 days ago. He had good output. The blood in his stool occurred a couple days after the magnesium citrate. The patient has a history of GERD for which he takes Protonix. Review of Systems Review of Systems Constitutional: Denies fever or chills [] Eyes: Denies change in visual acuity, redness, or eye pain [] HENT: Denies nasal congestion or sore throat [] Respiratory: Denies cough or shortness of breath [] Cardiovascular: No additional information not addressed in HPI [] GI: Right lower quadrant abdominal pain, rectal bleeding[] : Denies dysuria or hematuria [] Musculoskeletal: Denies back pain or joint pain [] Integument: Denies rash or skin lesions [] Neurologic: Denies headache, focal weakness or sensory changes [] Endocrine: Denies polyuria or polydipsia [] All other systems were reviewed and found to be within normal limits, except as documented in this note. Current Medications Current Medications Current Medications Medications (Trade) Dose Ordered Sig/[facility] Start Time Stop Time Status Last Admin Dose Admin Pantoprazole Sodium (Protonix Vial) 40 mg 1X ONCE 07/31/18 11:30 07/31/18 11:31 Allergies Allergies Allergies Coded Allergies Type Severity Reaction Last Updated Verified No Known Drug Allergies 02/24/15 No Physical Exam Physical Exam Constitutional: Well developed, well nourished, no acute distress, non-toxic appearance. [] HENT: Normocephalic, atraumatic, bilateral external ears normal, oropharynx moist, no oral exudates, nose normal. [] Eyes: PERRLA, EOMI, conjunctiva normal, no discharge. [] Neck: Normal range of motion, no tenderness, supple, no stridor. [] Cardiovascular:Heart rate regular rhythm, no murmur [] Lungs & Thorax: Bilateral breath sounds clear to auscultation [] Abdomen: Right lower quadrant abdominal tenderness with rebound, without guarding.[] Skin: Warm, dry, no erythema, no rash. [] Back: No tenderness, no CVA tenderness. [] Extremities: No tenderness, no cyanosis, no clubbing, ROM intact, no edema. [] Neurologic: Alert and oriented X 3, normal motor function, normal sensory function, no focal deficits noted. [] Psychologic: Affect normal, judgement normal, mood normal. Rectal: Normal external exam, no obvious hemorrhoids. no blood [] Current Patient Data Vital Signs Vital Signs Date Time Temp Pulse Resp B/P (MAP) Pulse Ox O2 Delivery O2 Flow Rate FiO2 07/31/18 11:17 98.2 84 22 98 Room Air EKG EKG [] Radiology/Procedures Radiology/Procedures [] Impressions: PQRS Compliance Statement: One or more of the following individualized dose reduction techniques were utilized for this examination: 1. Automated exposure control 2. Adjustment of the mA and/or kV according to patient size 3. Use of iterative reconstruction technique CT ABD PELV W/ IV CONTRST ONLY Clinical Indication: RLQ PAIN, rectal bleeding x3 days. Comparison: CT abdomen and pelvis without contrast March 04, 2016. Technique: Helical CT imaging of the abdomen and pelvis is performed after 75 cc of Omnipaque 300 IV contrast. Oral contrast not given. Findings: Lung bases essentially clear. Cardiac size normal. The liver, gallbladder, spleen, pancreas, adrenal glands, abdominal aorta, and kidneys are normal. Stomach unremarkable. No dilated small bowel. The appendix is normal. The rectum is mildly distended with stool. No definite wall thickening. The descending and proximal sigmoid colon are decompressed, limiting evaluation. No colon wall thickening is identified. No abdominal adenopathy or free fluid. Urinary bladder is normal. Prostate and seminal vesicles normal. No pelvic free fluid. Bilateral inguinal lymph nodes may be reactive. Multilevel small Schmorl's nodes in the lower thoracic and lumbar spine. IMPRESSION: 1. Rectum is mildly distended with stool. No evidence of colitis. 2. The appendix is normal. Electronically signed by: Alexis Godfrey MD (07/31/2018 11:55 AM) [id number] DICTATED AND SIGNED BY: ALEXIS GODFREY MD DATE: 07/31/18 1155 CC: LETICIA MASTERSON DO; ALEXA REYNOLDS MD Course & Med Decision Making Course & Med Decision Making Pertinent Labs and Imaging studies reviewed. (See chart for details) The patient's CT is remarkable for stool retention in the ascending colon and rectum. I believe this pain is from constipation. I've advised to repeat magnesium citrate dosing as well as daily MiraLAX to improve his bowel regimen. I believe the bleeding was just from mild hemorrhoids or small skin tears due to the constipation. He is stable for discharge at this time. [] Dragon Disclaimer Dragon Disclaimer This electronic medical record was generated, in whole or in part, using a voice recognition dictation system. Departure Departure: Impression: Primary Impression: Constipation by delayed colonic transit Additional Impression: Rectal bleeding Disposition: 01 HOME, SELF-CARE Condition: STABLE Referrals: ALEXA REYNOLDS MD (PCP) Patient Instructions: Constipation, Adult, [id number] Problem Qualifiers LETICIA MASTERSON DO Jul 31, 2018 11:26
[2018-07-31] MEDS ORDERED: IOHEXOL 300 MG/ML 75 ML VIAL. IV ONE (11:30)
[2018-07-31] MEDS ORDERED: PANTOPRAZOLE IV 40 MG VIAL. IVP ONE (11:30)
[2018-07-31 11:43] LABS: BASO % 0 % (0-3); EOS # 0.1 x10^3/uL (0.0-0.7); EOS % 1 % (0-3); HEMATOCRIT 46.7 % (39.0-53.0); HEMOGLOBIN 16.4 g/dL (13.0-17.5); LYMPH # 1.6 x10^3/uL (1.0-4.8); LYMPH % 28 % (24-48); MEAN CORPUSCULAR HEMOGLOBIN 31 pg (25-35); MEAN CORPUSCULAR HGB CONC 35 g/dL (31-37); MEAN CORPUSCULAR VOLUME 88 fL (79-100); MONO # 0.5 x10^3/uL (0.0-1.1); MONO % 9 % (0-9); NEUT # 3.5 x10^3uL (1.8-7.7); NEUT % 61 % (31-73); PLATELET COUNT 223 x10^3/uL (140-400); RED BLOOD COUNT 5.33 x10^6/uL (4.30-5.70); WHITE BLOOD COUNT 5.7 x10^3/uL (4.0-11.0)
[2018-07-31 11:52] LABS: ALBUMIN 4.3 g/dL (3.4-5.0); ALBUMIN/GLOBULIN RATIO 1.4 (1.0-1.7); CALCIUM 9.3 mg/dL (8.5-10.1); CREATININE 1.1 mg/dL (0.7-1.3); GFR 77.6; POTASSIUM 4.2 mmol/L (3.5-5.1); TOTAL BILIRUBIN 0.8 mg/dL (0.2-1.0); TOTAL PROTEIN 7.3 g/dL (6.4-8.2)
--- NOTE | 2018-07-31 11:58 | RAD ---
PQRS Compliance Statement: One or more of the following individualized dose reduction techniques were utilized for this examination: 1. Automated exposure control 2. Adjustment of the mA and/or kV according to patient size 3. Use of iterative reconstruction technique CT ABD PELV W/ IV CONTRST ONLY Clinical Indication: RLQ PAIN, rectal bleeding x3 days. Comparison: CT abdomen and pelvis without contrast March 04, 2016. Technique: Helical CT imaging of the abdomen and pelvis is performed after 75 cc of Omnipaque 300 IV contrast. Oral contrast not given. Findings: Lung bases essentially clear. Cardiac size normal. The liver, gallbladder, spleen, pancreas, adrenal glands, abdominal aorta, and kidneys are normal. Stomach unremarkable. No dilated small bowel. The appendix is normal. The rectum is mildly distended with stool. No definite wall thickening. The descending and proximal sigmoid colon are decompressed, limiting evaluation. No colon wall thickening is identified. No abdominal adenopathy or free fluid. Urinary bladder is normal. Prostate and seminal vesicles normal. No pelvic free fluid. Bilateral inguinal lymph nodes may be reactive. Multilevel small Schmorl's nodes in the lower thoracic and lumbar spine. IMPRESSION: 1. Rectum is mildly distended with stool. No evidence of colitis. 2. The appendix is normal. Electronically signed by: Alexis Anderson MD (07/31/2018 11:55 AM) [id number]
[2018-07-31 12:49] LABS: FECAL OB PT NEGATIVE (NEG)
[2018-08-01] MEDS ORDERED: SUCR1TAB35 PO (12:18)
== END 2018-07-31 12:30 | disposition home or self-care (01) ==
LOC: ER 11:03
DX: K59.01 Slow transit constipation (principal); K62.5 Hemorrhage of anus and rectum; F41.9 Anxiety disorder, unspecified; F32.9 Major depressive disorder, single episode, unspecified
CPT/HCPCS: 36415; 74177; 80053; 82274; 85025; 96374; 96375; 99284; C9113; J2060; Q9967

== ENCOUNTER 2018-08-01 10:28 | Emergency (ER) | payer SELFPAY ==
[~2018-08-01] VITALS: Ht 180.3 cm; Wt 81.2 kg
[2018-08-01 10:40] VITALS: BP 128/87
--- NOTE | 2018-08-01 10:55 | RAD ---
CHEST PA LATERAL History: SHORT OF BREATH, CHEST TIGHTNESS Comparison: June 03, 2018 Findings: 2 PA and single lateral views of the chest are submitted. There is no infiltrate, pleural fluid, pneumothorax. Heart size is stable, within normal limits. Impression: 1. There is no radiographic evidence of acute cardiopulmonary disease. Electronically signed by: Adelfo Alonso MD (08/01/2018 10:52 AM) [facility]
--- NOTE | 2018-08-01 11:01 | PHYS DOC ---
Past History Past Medical History: Anxiety, Depression, Other Past Surgical History: Other Smoking: Non-smoker Alcohol Use: None Drug Use: None Adult General Chief Complaint Chief Complaint: SHORTNESS OF BREATH [facility] HPI 33-year-old male returns emergency room with complaint of shortness of breath. The patient was seen yesterday for abdominal pain and constipation. Today he states that he is a feeling of his throat being closed off. It started some last night, but he was asleep. This morning he woke up feeling fine, but then began have the feeling of something in his throat again. He tried drinking warm liquids which helped last night, but it is not helping. He assumes it is probably his anxiety, but he's not had this feeling with his anxiety before. He did take his prescribed lorazepam this morning. He denies fever or chills. Review of Systems Review of Systems Constitutional: Denies fever or chills [] Eyes: Denies change in visual acuity, redness, or eye pain [] HENT: Throat tightness[] Respiratory: shortness of breath [] Cardiovascular: No additional information not addressed in HPI [] GI: Denies abdominal pain, nausea, vomiting, bloody stools or diarrhea [] : Denies dysuria or hematuria [] Musculoskeletal: Denies back pain or joint pain [] Integument: Denies rash or skin lesions [] Neurologic: Denies headache, focal weakness or sensory changes [] Endocrine: Denies polyuria or polydipsia [] All other systems were reviewed and found to be within normal limits, except as documented in this note. Allergies Allergies Allergies Coded Allergies Type Severity Reaction Last Updated Verified No Known Drug Allergies 02/24/15 No Physical Exam Physical Exam Constitutional: Well developed, well nourished, no acute distress, non-toxic appearance. [] HENT: Normocephalic, atraumatic, bilateral external ears normal, oropharynx moist, no oral exudates, nose normal. No signs of oropharyngeal swelling[] Eyes: PERRLA, EOMI, conjunctiva normal, no discharge. [] Neck: Normal range of motion, no tenderness, supple, no stridor. [] Cardiovascular:Heart rate regular rhythm, no murmur [] Lungs & Thorax: Bilateral breath sounds clear to auscultation [] Abdomen: Bowel sounds normal, soft, no tenderness, no masses, no pulsatile masses. [] Skin: Warm, dry, no erythema, no rash. [] Back: No tenderness, no CVA tenderness. [] Extremities: No tenderness, no cyanosis, no clubbing, ROM intact, no edema. [] Neurologic: Alert and oriented X 3, normal motor function, normal sensory function, no focal deficits noted. [] Psychologic: Affect normal, judgement normal, mood anxious. [] EKG EKG [] Radiology/Procedures Radiology/Procedures [] Impressions: CHEST PA LATERAL History: SHORT OF BREATH, CHEST TIGHTNESS Comparison: June 03, 2018 Findings: 2 PA and single lateral views of the chest are submitted. There is no infiltrate, pleural fluid, pneumothorax. Heart size is stable, within normal limits. Impression: 1. There is no radiographic evidence of acute cardiopulmonary disease. Electronically signed by: Yanet Sanchze MD (08/01/2018 10:52 AM) [facility] DICTATED AND SIGNED BY: YANET SANCHEZ MD DATE: 08/01/18 1052 CC: LETICIA MASTERSON DO; ALXEA REYNOLDS MD Course & Med Decision Making Course & Med Decision Making Pertinent Labs and Imaging studies reviewed. (See chart for details) Patient's labs are unremarkable. His chest x-ray is unremarkable. His vitals remain stable throughout his visit to the ED. I gave the patient 25 mg of hydroxyzine. The patient is feeling a bit better at this time. He really is anxious about his health in spite of no obvious serious health issues. I did give the patient a GI cocktail which helped significantly with his epigastric burning. I will discharge him with Carafate to add to his Protonix that he already takes daily. I have recommended follow up with GI. He is stable for discharge at this time. [] Dragon Disclaimer Dragon Disclaimer This electronic medical record was generated, in whole or in part, using a voice recognition dictation system. Departure Departure: Impression: Primary Impression: Anxiety Additional Impressions: Globus sensation GERD (gastroesophageal reflux disease) Disposition: 01 HOME, SELF-CARE Condition: STABLE Referrals: ALEXA REYNOLDS MD (PCP) Scripts Sucralfate (CARAFATE) 1 Gm Tablet 1 TAB PO QID PRN for GI SYMPTOMS, #120 TAB 1 Refill Prov: LETICIA MASTERSON DO 3/30/19 Problem Qualifiers LETICIA MASTERSON DO Aug 01, 2018 11:01
[2018-08-01] MEDS ORDERED: hydrOXYzine HCL 25 MG TABLET PO ONE (11:15)
[2018-08-01 11:20] LABS: BASO % 1 % (0-3); EOS # 0.1 x10^3/uL (0.0-0.7); EOS % 2 % (0-3); HEMATOCRIT 45.7 % (39.0-53.0); LYMPH # 1.8 x10^3/uL (1.0-4.8); LYMPH % 36 % (24-48); MEAN CORPUSCULAR HEMOGLOBIN 30 pg (25-35); MEAN CORPUSCULAR HGB CONC 35 g/dL (31-37); MEAN CORPUSCULAR VOLUME 87 fL (79-100); MONO # 0.6 x10^3/uL (0.0-1.1); MONO % 11 % (0-9); NEUT # 2.5 x10^3uL (1.8-7.7); NEUT % 50 % (31-73); PLATELET COUNT 221 x10^3/uL (140-400); RED BLOOD COUNT 5.26 x10^6/uL (4.30-5.70); RED CELL DISTRIBUTION WIDTH 13.1 % (11.5-14.5); WHITE BLOOD COUNT 5.1 x10^3/uL (4.0-11.0)
[2018-08-01 11:26] LABS: CALCIUM 9.1 mg/dL (8.5-10.1); GFR 86.6; POTASSIUM 4.1 mmol/L (3.5-5.1)
[2018-08-01] MEDS ORDERED: LIDO:MAALOX 1:1 20 ML SINGLE DOSE. PO ONE (12:15)
[2018-08-01] MEDS ORDERED: SUCR1TAB35 PO (12:18)
== END 2018-08-01 12:15 | disposition home or self-care (01) ==
LOC: ER 10:28
DX: F45.8 Other somatoform disorders (principal); F41.9 Anxiety disorder, unspecified; K21.9 Gastro-esophageal reflux disease without esophagitis
CPT/HCPCS: 36415; 71046; 80048; 85025; 99284

== ENCOUNTER → 2018-10-26 | Outpatient (CLI) | payer SELFPAY ==
[~2018-10-26] MED LIST changes: +SUCR1TAB35 PO
--- NOTE | 2018-10-26 12:35 | RAD ---
Limited abdomen ultrasound study Clinical indications: 2 abdominal masses. FINDINGS: The more superior lump labeled #1 was evaluated sonographically. There is a subcutaneous homogeneous solid hyperechoic mass measuring 9 mm x 7 mm x 5 mm in size. No abnormal internal color Doppler flow is seen within it. The more inferior lump labeled #2 was evaluated sonographically. There is a subcutaneous homogeneous hyperechoic solid mass measuring 13 mm x 8 mm x 5 mm in size. No abnormal internal color Doppler flow is seen within it. IMPRESSION: Both palpable lumps of the abdomen correspond to similar homogeneous hyperechoic solid nodules with measures discussed above. This is consistent with lipomas. With regard to any lipomatous mass, follow-up should be clinical. Electronically signed by: Sal Corado MD (10/26/2018 12:32 PM) [place] [id number]
== END | disposition home or self-care (01) ==
LOC: US 09:00
PROVIDERS: ATTEND Registered Nurse
DX: R22.2 Localized swelling, mass and lump, trunk (principal)
CPT/HCPCS: 76705

== ENCOUNTER 2018-12-02 22:18 | Emergency (ER) | payer SELFPAY ==
[~2018-12-02] VITALS: Ht 180.3 cm; Wt 81.2 kg
[2018-12-02] MEDS: ONDANSETRON PF 4 MG/2 ML VIAL. IV ONE (22:45)
[2018-12-02] MEDS ORDERED: DEXAMETHASONE SOD PHOS 10 MG/ML VIAL IV ONE (22:45)
--- NOTE | 2018-12-02 22:58 | PHYS DOC ---
Past History Past Medical History: Anxiety, Depression, Other Past Surgical History: No Surgical History Smoking: Cigarettes, Greater than 1 pack/day Alcohol Use: None Drug Use: None Adult General Chief Complaint Chief Complaint: NAUSEA/VOMITING/DIARRHEA HPI HPI Mr. Acosta is a 33yo M w/ PMH significant for anxiety presents with complaints of bleeding gums, "pounding" heart, and shakiness of 1.5 weeks. Started intermittent, lasting about 30 minutes per episode, but has progressed to be constant. Admits to palpitations w/o radiation, fever, chills, n/v, and shortness of breath during the episodes. Denies sense of impending doom. At-home lorazepam has not helped. Reports he was recently started on antidepressant 1 week ago. Reports increased life stressors. Eating initially seemed to cause the symptoms. Review of Systems Review of Systems Constitutional: Reports fever, chills Eyes: Denies redness or eye pain HENT: Denies nasal congestion or sore throat, reports gum bleeding Respiratory: Reports shortness of breath. Denies cough or hemoptysis. Cardiovascular: Reports palpitations ; denies chest pain GI: Reports n/v w/o hematemesis and constipation. Denies abdominal pain, diarrhea, or hematochezia. : Denies dysuria or hematuria Musculoskeletal: Denies back pain or joint pain. Reports neck tenderness. Integument: Denies rash or skin lesions Neurologic: Reports DUPONT. Denies focal weakness or sensory changes Psychiatric: Reports anxiety, reports increased life stressors. Complete systems were reviewed and found to be within normal limits, except as documented in this note. Current Medications Current Medications Current Medications Medications (Trade) Dose Ordered Sig/[facility] Start Time Stop Time Status Last Admin Dose Admin Dexamethasone Sodium Phosphate (Decadron) 10 mg 1X ONCE 12/02/18 22:45 12/02/18 22:46 Ondansetron HCl (Zofran) 4 mg 1X ONCE 12/02/18 22:45 12/02/18 22:46 Sodium Chloride 1,000 ml @ 1,000 mls/hr 1X ONCE 12/02/18 22:30 12/02/18 23:29 Allergies Allergies Allergies Coded Allergies Type Severity Reaction Last Updated Verified No Known Drug Allergies 02/24/15 No Physical Exam Physical Exam Constitutional: Thin, well developed, well nourished, no acute distress, non- toxic appearance HENT: Normocephalic, atraumatic, oropharynx moist Eyes: PERRL, EOMI, conjunctiva normal, no discharge Neck: Normal range of motion, no tenderness, supple Cardiovascular: Heart RRR w/ no gallops, rubs, or murmurs. UE radial pulses intact 2/4 b/l. Lungs & Thorax: Bilateral breath sounds clear to auscultation throughout, no wheezing Abdomen: Soft, no tenderness, non-distended Skin: Warm, dry, no erythema, no rash Back: No tenderness, no CVA tenderness Extremities: No tenderness, ROM intact, no edema Neurologic: Alert and oriented X 3, normal motor function, normal sensory function, no focal deficits noted Psychologic: Affect normal, judgement normal, mood normal EKG EKG @2303 NSR at 71bpm, NO ST elevation, QRS 82ms, QT/QTc 366/402ms Radiology/Procedures Radiology/Procedures [] Course & Med Decision Making Course & Med Decision Making Pertinent Lab studies reviewed. (See chart for details) Patient presents with report of palpitations with associated shakiness x 10 days. Reports gingival bleeding. Reports increased life stressors and history of anxiety. Reports recently started on new psych medication. EKG stable. Labs obtained and posted to chart. IVF hydration given. Anxiety addressed. Reports recent thyroid studies per PCP which were reportedly normal. Physical exam c onsistent for anxiety and gingivitis. Patient stable for discharge with outpatient follow-up with PCP. Discussed findings and plan with patient and family, who acknowledge understanding and agreement. Dragon Disclaimer Dragon Disclaimer This electronic medical record was generated, in whole or in part, using a voice recognition dictation system. Departure Departure: Impression: Primary Impression: Palpitations Additional Impression: Gingivitis Disposition: HOME, SELF-CARE Condition: STABLE Referrals: ALEXA REYNOLDS MD (PCP) Patient Instructions: Gingivitis, Xpek-fs-Devp, Palpitations, [id number] Scripts Chlorhexidine Gluconate (PERIDEX) 15 Ml Mouthwash 15 ML PO BID for Gingivitis, #473 ML Prov: MARGAUX VALENZUELA DO 12/03/18 Problem Qualifiers MARGAUX VALENZUELA DO Dec 02, 2018 22:58
[2018-12-02] MEDS: IV NORMAL SALINE 1,000ML 1,000 ML IV ONE (23:36)
[2018-12-02 23:57] LABS: BASO % 0 % (0-3); EOS # 0.1 x10^3/uL (0.0-0.7); EOS % 2 % (0-3); HEMATOCRIT 47.5 % (39.0-53.0); HEMOGLOBIN 16.2 g/dL (13.0-17.5); LYMPH # 2.3 x10^3/uL (1.0-4.8); LYMPH % 36 % (24-48); MEAN CORPUSCULAR HEMOGLOBIN 30 pg (25-35); MEAN CORPUSCULAR HGB CONC 34 g/dL (31-37); MEAN CORPUSCULAR VOLUME 88 fL (79-100); MONO # 0.6 x10^3/uL (0.0-1.1); MONO % 9 % (0-9); NEUT # 3.4 x10^3uL (1.8-7.7); NEUT % 53 % (31-73); PLATELET COUNT 238 x10^3/uL (140-400); RED CELL DISTRIBUTION WIDTH 13.2 % (11.5-14.5); WHITE BLOOD COUNT 6.5 x10^3/uL (4.0-11.0)
[2018-12-03 00:18] LABS: ALBUMIN 3.7 g/dL (3.4-5.0); ALBUMIN/GLOBULIN RATIO 1.1 (1.0-1.7); CALCIUM 9.4 mg/dL (8.5-10.1); CREATININE 1.2 mg/dL (0.7-1.3); GFR 70.2; TOTAL BILIRUBIN 0.5 mg/dL (0.2-1.0); TOTAL PROTEIN 7.2 g/dL (6.4-8.2)
[2018-12-03] MEDS ORDERED: CHLO15MO2 PO (00:34)
[2018-12-03 00:45] VITALS: BP 116/73
[2018-12-03 00:49] LABS: AMORPHOUS SEDIMENT,UR PRESENT /HPF; BACTERIA,URINE 0 /HPF (0-FEW); BILIRUBIN,URINE NEG (NEG); CLARITY,URINE CLEAR; COLOR,URINE YELLOW; GLUCOSE,URINE NEG (NEG); NITRITE,URINE NEG (NEG); RBC,URINE 0 /HPF (0-2); SQUAMOUS EPITHELIAL CELL,UR OCC /LPF; UROBILINOGEN,URINE 0.2 mg/dL (0.2 mg/dL); WBC,URINE OCC /HPF (0-4)
[2018-12-03 01:13] LABS: BARBITURATES NEG (NEG); BENZODIAZEPINES NEG (NEG); CANNABINOIDS NEG (NEG); COCAINE NEG (NEG); METHADONE NEG (NEG); OPIATES NEG (NEG); PHENCYCLIDINE NEG (NEG)
[2018-12-03 01:19] LABS: AMPHETAMINE/METHAMPHETAMINE NEG (NEG)
--- NOTE | 2018-12-03 07:31 | EKG ---
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
== END 2018-12-03 01:03 | disposition home or self-care (01) ==
LOC: ER 22:18
DX: R00.2 Palpitations (principal); K05.10 Chronic gingivitis, plaque induced; R11.2 Nausea with vomiting, unspecified; F41.9 Anxiety disorder, unspecified; F32.9 Major depressive disorder, single episode, unspecified; F17.210 Nicotine dependence, cigarettes, uncomplicated
CPT/HCPCS: 36415; 80053; 80307; 81001; 83605; 83735; 85025; 93005; 96361; 96374; 99285; J2060; J7030

== ENCOUNTER 2019-03-29 02:20 | Emergency (ER) | payer SELFPAY ==
[~2019-03-29] VITALS: Ht 180.3 cm; Wt 81.2 kg
[~2019-03-29 02:20] MED LIST changes: +CHLO15MO2 PO
--- NOTE | 2019-03-29 02:29 | PHYS DOC ---
Past History Past Medical History: Anxiety, Depression Past Surgical History: No Surgical History Smoking: Cigarettes, Greater than 1 pack/day Alcohol Use: None Drug Use: None Adult General Chief Complaint Chief Complaint: ".. I ve been coughing up green shit... and tonight I notice some specks of blood in it.. I ve been sick since yesterday... maybe started friday.. I do smoke.. and I ve been around people with severe upper respiratory infections..." HPI HPI Patient is a 34 year old male who presents with above hx and complaints of cough, dyspnea, wheezing, hemoptysis ( specks). The pt. reports specks of blood with coughing episodes tonight. Less than a teaspoon for entire night. No history of travel. Has been around many individuals with upper respiratory infections. Patient denies any history of TB. Patient denies any history of night sweats. Patient denies any history immunosuppression. Patient does smoke. Patient does not vape.. Patient denies drug use. Patient did not get a flu vaccination this year. No history of DVT or pulmonary embolisms with him or family members. Follows with Dr. Reynolds Review of Systems Review of Systems Constitutional: Subjective complaints of fever or chills [] Eyes: Denies change in visual acuity, redness, or eye pain [] HENT: Complains of nasal congestion and sore throat [] Respiratory: Complaints of cough and wheezing Cardiovascular: No additional information not addressed in HPI [] GI: Denies abdominal pain, nausea, vomiting, bloody stools or diarrhea [] : Denies dysuria or hematuria [] Musculoskeletal: Denies back pain or joint pain [. The patient]complaints of generalized malaise and myalgia Integument: Denies rash or skin lesions [] Neurologic: Denies headache, focal weakness or sensory changes [] Endocrine: Denies polyuria or polydipsia [] All other systems were reviewed and found to be within normal limits, except as documented in this note. Family History Family History Upper respiratory infections Current Medications Current Medications See Nursing for home meds. Allergies Allergies Allergies Coded Allergies Type Severity Reaction Last Updated Verified prednisone Allergy Unknown 12/02/18 Yes Physical Exam Physical Exam Constitutional: moderated acute distress, non-toxic appearance. [] HENT: Normocephalic, atraumatic, bilateral external ears normal, oropharynx moist,injected pharynx, no oral exudates, nose swollen turbinates and rhinorrhea. Eyes: PERRLA, EOMI, conjunctiva normal, no discharge. [] Neck: Normal range of motion, no tenderness, supple, no stridor. [] Cardiovascular:Tachycardia Heart rate regular rhythm, no murmur [] Lungs & Thorax: Bilateral breath sounds equal at apexes with scattered wheezes on auscultation [] Abdomen: Bowel sounds normal, soft, no tenderness, no masses, no pulsatile masses. [] Skin: Warm, dry, no erythema, no rash. [] Back: No tenderness, no CVA tenderness. [] Extremities: No tenderness, no cyanosis, no clubbing, ROM intact, no edema. [] No cording receded. Neurologic: Alert and oriented X 3, normal motor function, normal sensory function, no focal deficits noted. [] Psychologic: Affect anxious, judgement normal, mood normal. [] EKG EKG My interpretation EKG shows a sinus rhythm at 94 bpm. Slightly prolonged MI interval at Center 40 ms. No findings acute STEMI with contralateral changes.[] Radiology/Procedures Radiology/Procedures I interpretation chest x-ray shows no large infiltrate or acute cardiopulmonary changes.[] Course & Med Decision Making Course & Med Decision Making Pertinent Labs and Imaging studies reviewed. (See chart for details) Patient to stop smoking. Patient take [id number] Tylenol and ibuprofen as needed for discomfort. Use MDI 2 puffs 4 times a day. Benadryl 50 mg at night. Follow-up primary care. Return if any concerns. Impression: 1. Bronchitis 2. Tobacco Use 3. Viral syndrome 4. Hypomagnesium 1.7 []Note during pt. work up there was computer failure. There may be missing record and or duplication. Dragon Disclaimer Dragon Disclaimer This electronic medical record was generated, in whole or in part, using a voice recognition dictation system. Departure Departure: Disposition: 01 HOME/RESIDENCE PRIOR TO ADM Condition: STABLE Referrals: ALEXA REYNOLDS MD (PCP) Lei Disclaimer This chart was dictated in whole or in part using Voice Recognition software in a busy, high-work load, and often noisy Emergency Department environment. It may contain unintended and wholly unrecognized errors or omissions. Dragon Disclaimer This chart was dictated in whole or in part using Voice Recognition software in a busy, high-work load, and often noisy Emergency Department environment. It may contain unintended and wholly unrecognized errors or omissions. BRYCE MALDONADO MD Mar 29, 2019 02:29
[2019-03-29] MEDS ORDERED: methylPREDNISolone SOD SUCC PF 125 MG/2 ML VIAL. IV ONE (03:00)
[2019-03-29] MEDS ORDERED: IV RINGERS SOLUTION,LACTATED 1,000 ML IV SCH (03:00)
[2019-03-29] MEDS ORDERED: ALBUTEROL SULFATE 8GM INHALER. IH ONE (03:00)
[2019-03-29 03:01] LABS: BASO % 0 % (0-3); EOS # 0.1 x10^3/uL (0.0-0.7); EOS % 1 % (0-3); HEMATOCRIT 47.1 % (39.0-53.0); HEMOGLOBIN 15.8 g/dL (13.0-17.5); LYMPH # 1.5 x10^3/uL (1.0-4.8); LYMPH % 22 % (24-48); MEAN CORPUSCULAR HEMOGLOBIN 30 pg (25-35); MEAN CORPUSCULAR HGB CONC 34 g/dL (31-37); MEAN CORPUSCULAR VOLUME 88 fL (79-100); MONO # 0.7 x10^3/uL (0.0-1.1); MONO % 10 % (0-9); NEUT # 4.6 x10^3uL (1.8-7.7); NEUT % 67 % (31-73); PLATELET COUNT 182 x10^3/uL (140-400); RED BLOOD COUNT 5.35 x10^6/uL (4.30-5.70); RED CELL DISTRIBUTION WIDTH 13.6 % (11.5-14.5); WHITE BLOOD COUNT 6.9 x10^3/uL (4.0-11.0)
[2019-03-29 03:10] LABS: BACTERIA,URINE 0 /HPF (0-FEW); BILIRUBIN,URINE NEG (NEG); CLARITY,URINE CLEAR; COLOR,URINE YELLOW; GLUCOSE,URINE NEG (NEG); NITRITE,URINE NEG (NEG); RBC,URINE 0 /HPF (0-2); SQUAMOUS EPITHELIAL CELL,UR OCC /LPF; UROBILINOGEN,URINE 0.2 mg/dL (0.2 mg/dL); WBC,URINE OCC /HPF (0-4)
[2019-03-29 03:18] LABS: AMPHETAMINE/METHAMPHETAMINE NEG (NEG); BARBITURATES NEG (NEG); BENZODIAZEPINES NEG (NEG); CANNABINOIDS NEG (NEG); COCAINE NEG (NEG); METHADONE NEG (NEG); OPIATES NEG (NEG); PHENCYCLIDINE NEG (NEG)
[2019-03-29 03:24] LABS: ALBUMIN 3.8 g/dL (3.4-5.0); CALCIUM 8.4 mg/dL (8.5-10.1); CREATININE 0.8 mg/dL (0.7-1.3); DIRECT BILIRUBIN 0.1 mg/dL (0.0-0.2); GFR 111.3; MAGNESIUM 1.7 mg/dL (1.8-2.4); POTASSIUM 3.8 mmol/L (3.5-5.1); TOTAL BILIRUBIN 0.7 mg/dL (0.2-1.0); TOTAL PROTEIN 6.6 g/dL (6.4-8.2)
--- NOTE | 2019-03-29 03:27 | EKG ---
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
[2019-03-29 03:32] LABS: INFLUENZA A PATIENT NEGATIVE (NEGATIVE); INFLUENZA B PATIENT NEGATIVE (NEGATIVE)
[2019-03-29] MEDS ORDERED: MAGNESIUM HYDROXIDE 2,400 MG/30 ML ORAL.SUSP. PO ONE (04:30)
[2019-03-29 05:50] VITALS: BP 99/52
--- NOTE | 2019-03-29 08:08 | RAD ---
Study: CHEST PA LATERAL Indication: Shortness of air. Cough. Comparison: 08/01/2018 Findings: No pneumothorax or layering effusion. The appearance of the lungs is unchanged with no newly seen localized infiltrate. Unremarkable cardiomediastinal silhouette and rosales. The osseous structures are grossly intact. Impression: No acute radiographic abnormality of the chest. No significant interval change from 08/01/2018 Electronically signed by: RALPH MCMILLAN MD (03/29/2019 8:05 AM) [facility] [place]
== END 2019-03-29 05:50 | disposition home or self-care (01) ==
LOC: ER 02:20
DX: J40 Bronchitis, not specified as acute or chronic (principal); B34.9 Viral infection, unspecified; E83.42 Hypomagnesemia; F17.210 Nicotine dependence, cigarettes, uncomplicated; Z88.8 Allergy status to other drugs, medicaments and biological substances
CPT/HCPCS: 36415; 71046; 80048; 80076; 80307; 81001; 82550; 83735; 83880; 84443; 84484; 85025; 85379; 85610; 85730; 87070; 87804; 87880; 93005; 94640; 96374; 99285; J2930; J7120; J7613; 96361; 94664

== ENCOUNTER 2019-06-14 20:58 | Emergency (ER) | payer SELFPAY ==
[~2019-06-14] VITALS: Ht 180.3 cm; Wt 81.2 kg
[~2019-06-14 20:58] MED LIST changes: +MAGN296S68 PO; -MAGN296S9 PO
[2019-06-14 21:07] VITALS: BP 136/92
--- NOTE | 2019-06-14 21:21 | PHYS DOC ---
Past History Past Medical History: Anxiety Past Surgical History: No Surgical History Smoking: Cigarettes, Greater than 1 pack/day Alcohol Use: None Drug Use: None Adult General Chief Complaint Chief Complaint: FLU SYMPTOM.. " My had the flu.. B.. and now I probably got it... :' [facility] HPI Patient is a 34 year old male who presents with above hx and complaints of fever, chills, malaise, arthralgia, myalgia, and nausea. Patient did not get flu vaccination this season. Has been exposed to who tested positive for influenza B. Patient also complaining of some left ear fullness. No recent travel. No specific ill contacts outside the family. Patient does smoke. Review of Systems Review of Systems Constitutional: Complaints of fever or chills [] Eyes: Denies change in visual acuity, redness, or eye pain [] HENT: Denies nasal congestion or sore throat [] Respiratory: Denies cough or shortness of breath [] Cardiovascular: No additional information not addressed in HPI [] GI: Complaints of abdominal pain, nausea,. Denies vomiting, bloody stools or diarrhea [] : Denies dysuria or hematuria [] Musculoskeletal: Denies back pain or joint pain [] Integument: Denies rash or skin lesions [] Neurologic: Denies headache, focal weakness or sensory changes [] Endocrine: Denies polyuria or polydipsia [] All other systems were reviewed and found to be within normal limits, except as documented in this note. Family History Family History has influenza B Current Medications Current Medications See nursing for home medications Allergies Allergies Allergies Coded Allergies Type Severity Reaction Last Updated Verified prednisone Allergy Unknown 12/02/18 Yes Physical Exam Physical Exam Constitutional: Well developed, well nourished, moderate acute distress, non- toxic appearance. [] HENT: Normocephalic, atraumatic, bilateral external ears normal, fluid behind TMs bilaterally but no erythema, oropharynx moist, no oral exudates, nose normal. [] Eyes: PERRLA, EOMI, conjunctiva normal, no discharge. [] Neck: Normal range of motion, no tenderness, supple, no stridor. [] Cardiovascular: Tachycardia Heart rate regular rhythm, no murmur [] Lungs & Thorax: Bilateral breath sounds breath sounds equal apex with scattered wheezes on auscultation [] Abdomen: Bowel sounds normal, soft, no tenderness, no masses, no pulsatile masses. [] Skin: Warm, dry, no erythema, no rash. [] Back: No tenderness, no CVA tenderness. [] Extremities: No tenderness, no cyanosis, no clubbing, ROM intact, no edema. [] Neurologic: Alert and oriented X 3, normal motor function, normal sensory function, no focal deficits noted. [] Psychologic: Affect anxious, judgement normal, mood normal. [] Current Patient Data Vital Signs Vital Signs Date Time Temp Pulse Resp B/P (MAP) Pulse Ox O2 Delivery O2 Flow Rate FiO2 06/14/19 21:07 98.3 95 20 136/92 (107) 98 Room Air EKG EKG [] Radiology/Procedures Radiology/Procedures [] Course & Med Decision Making Course & Med Decision Making Pertinent Labs and Imaging studies reviewed. (See chart for details) Patient take Tylenol and ibuprofen for discomfort. Patient uses MDI 2 puffs 4 times a day. Patient encouraged to stop smoking. She take Tamiflu 75 mg twice day for 5 days. Patient may take Zofran 8 mg up 4 times a day for active nausea and vomiting. Patient follow-up primary care. Patient return if any concerns. Impression: 1. Influenza B 2. Asthma 3. Tobacco use [] Dragon Disclaimer Dragon Disclaimer This electronic medical record was generated, in whole or in part, using a voice recognition dictation system. Departure Departure: Disposition: 01 HOME/RESIDENCE PRIOR TO ADM Condition: STABLE Referrals: ALEXA REYNOLDS MD (PCP) Scripts Oseltamivir Phosphate (TAMIFLU) 75 Mg Capsule 75 MG PO BID for Influenza B for 5 Days, #10 CAP Prov: BRYCE MALDONADO MD 06/14/19 Ondansetron Hcl (ZOFRAN) 8 Mg Tablet 8 MG PO QIDPRN PRN for active vomiting, #30 BOTTLE Prov: BRYCE MALDONADO MD 06/14/19 Dragtaylor Disclaimer This chart was dictated in whole or in part using Voice Recognition software in a busy, high-work load, and often noisy Emergency Department environment. It may contain unintended and wholly unrecognized errors or omissions. Dragon Disclaimer This chart was dictated in whole or in part using Voice Recognition software in a busy, high-work load, and often noisy Emergency Department environment. It may contain unintended and wholly unrecognized errors or omissions. BRYCE MALDONADO MD Jun 14, 2019 21:21
[2019-06-14] MEDS ORDERED: ACETAMINOPHEN 500 MG TABLET PO ONE (21:30)
[2019-06-14] MEDS ORDERED: ALBUTEROL SULFATE 8GM INHALER. INH ONE (21:30)
[2019-06-14 22:11] LABS: INFLUENZA A PATIENT NEGATIVE (NEGATIVE); INFLUENZA B PATIENT POSITIVE (NEGATIVE)
[2019-06-14] MEDS ORDERED: OSELTAMIVIR 75 MG CAPSULE PO ONE (22:15)
[2019-06-14] MEDS ORDERED: ONDA8TAB9 PO (22:19)
[2019-06-14] MEDS ORDERED: OSEL75CA PO (22:19)
== END 2019-06-14 22:37 | disposition home or self-care (01) ==
LOC: ER 20:58
DX: J10.1 Influenza due to other identified influenza virus with other respiratory manifestations (principal); J45.909 Unspecified asthma, uncomplicated; F17.210 Nicotine dependence, cigarettes, uncomplicated; Z88.8 Allergy status to other drugs, medicaments and biological substances
CPT/HCPCS: 87070; 87804; 87880; 99283

== ENCOUNTER 2019-07-17 21:44 | Emergency (ER) | payer SELFPAY ==
[~2019-07-17] VITALS: Ht 180.3 cm; Wt 80.5 kg
[~2019-07-17 21:44] MED LIST changes: +ONDA8TAB9 PO; +OSEL75CA PO
[2019-07-17] MEDS ORDERED: PANT40TA5 PO (22:09)
[2019-07-17] MEDS ORDERED: PANTOPRAZOLE IV 40 MG VIAL. ONE (22:14)
--- NOTE | 2019-07-17 22:15 | PHYS DOC ---
Past History Past Medical History: Anxiety Past Surgical History: No Surgical History Smoking: Cigarettes, Greater than 1 pack/day Alcohol Use: None Drug Use: None Adult General Chief Complaint Chief Complaint: ABDOMINAL PAIN [facility] HPI 34-year-old male presents with lower abdominal pain and rectal bleeding. The patient has had some lower abdominal pain yesterday and today. He had a little blood on toilet paper yesterday. Today he had bright red blood with some clots in his stool. He has a history of hemorrhoids. He also has GERD and takes pantoprazole 40 mg daily. He's been doing this for a long time. No regular NSAID use. The abdominal pain is a mild cramping sensation. No history of div erticulitis or inflammatory bowel disorder. He denies fever or chills. Review of Systems Review of Systems Constitutional: Denies fever or chills [] Eyes: Denies change in visual acuity, redness, or eye pain [] HENT: Denies nasal congestion or sore throat [] Respiratory: Denies cough or shortness of breath [] Cardiovascular: No additional information not addressed in HPI [] GI: Denies abdominal pain, nausea, vomiting, bloody stools or diarrhea [] : Denies dysuria or hematuria [] Musculoskeletal: Denies back pain or joint pain [] Integument: Denies rash or skin lesions [] Neurologic: Denies headache, focal weakness or sensory changes [] Endocrine: Denies polyuria or polydipsia [] All other systems were reviewed and found to be within normal limits, except as documented in this note. Current Medications Current Medications Current Medications Medications (Trade) Dose Ordered Sig/Justice Start Time Stop Time Status Last Admin Dose Admin Sodium Chloride 1,000 ml @ 1,000 mls/hr 1X ONCE 07/17/19 22:15 07/17/19 23:14 UNV Allergies Allergies Allergies Coded Allergies Type Severity Reaction Last Updated Verified prednisone Allergy Unknown 07/17/19 Yes Physical Exam Physical Exam Constitutional: Well developed, well nourished, no acute distress, non-toxic appearance. [] HENT: Normocephalic, atraumatic, bilateral external ears normal, oropharynx moist, no oral exudates, nose normal. [] Eyes: PERRLA, EOMI, conjunctiva normal, no discharge. [] Neck: Normal range of motion, no tenderness, supple, no stridor. [] Cardiovascular:Heart rate regular rhythm, no murmur [] Lungs & Thorax: Bilateral breath sounds clear to auscultation [] Abdomen: Bowel sounds normal, soft, no tenderness, no masses, no pulsatile masses. [] Skin: Warm, dry, no erythema, no rash. [] Back: No tenderness, no CVA tenderness. [] Extremities: No tenderness, no cyanosis, no clubbing, ROM intact, no edema. [] Neurologic: Alert and oriented X 3, normal motor function, normal sensory function, no focal deficits noted. [] Psychologic: Affect normal, judgement normal, mood normal. [] EKG EKG [] Radiology/Procedures Radiology/Procedures [] Impressions: CT SCAN OF THE ABDOMEN AND PELVIS WITH IV CONTRAST. History: Lower abdominal pain Comparison:None. Procedure: Contiguous axial images of the abdomen and pelvis were performed after the administration of 75 cc of Omni 300 IV contrast. Oral contrast: No. Findings: The gallbladder is collapsed but otherwise appears normal. The appendix is small and difficult to visualize but appears normal. Liver: Unremarkable Spleen: Unremarkable Pancreas: Unremarkable Adrenal Glands: Unremarkable Kidneys: Unremarkable There is no mass or lymphadenopathy. There is no free air. There is no free fluid. The urinary bladder appears normal. Impression: No acute findings. PQRS Compliance Statement: One or more of the following individualized dose reduction techniques were utilized for this examination: 1. Automated exposure control 2. Adjustment of the mA and/or kV according to patient size 3. Use of iterative reconstruction technique Electronically signed by: Maddi Boyd III, MD (07/17/2019 11:28 PM) [id number] DICTATED AND SIGNED BY: MADDI BOYD III, MD DATE: 07/17/19 2328 CC: LETICIA MASTERSON DO; ALEXA REYNOLDS MD ~ Course & Med Decision Making Course & Med Decision Making Pertinent Labs and Imaging studies reviewed. (See chart for details) The patient's labs are unremarkable. He is not anemic. His CT scan is negative for acute findings. This is likely lower GI in nature such as hemorrhoids. I have given the patient 40 mg Protonix IV. He has had no bloody stool while in the emergency room. I believe this is likely to self resolved. If he continues to have significant bleeding, he will return to the emergency room. He is stable for discharge at this time. [] Dragon Disclaimer Dragon Disclaimer This electronic medical record was generated, in whole or in part, using a voice recognition dictation system. Departure Departure: Impression: Primary Impression: Rectal bleeding Disposition: HOME, SELF-CARE Condition: STABLE Referrals: ALEXA REYNOLDS MD (PCP) Patient Instructions: Rectal Bleeding, [id number] LETICIA MASTERSON DO Jul 17, 2019 22:15
[2019-07-17] MEDS ORDERED: CONTRAST GIVEN MC PRN (22:30)
[2019-07-17 22:43] LABS: BASO % 0 % (0-3); EOS # 0.1 x10^3/uL (0.0-0.7); EOS % 2 % (0-3); HEMATOCRIT 47.1 % (39.0-53.0); HEMOGLOBIN 16.3 g/dL (13.0-17.5); LYMPH # 1.9 x10^3/uL (1.0-4.8); LYMPH % 37 % (24-48); MEAN CORPUSCULAR HEMOGLOBIN 31 pg (25-35); MEAN CORPUSCULAR HGB CONC 35 g/dL (31-37); MEAN CORPUSCULAR VOLUME 89 fL (79-100); MONO # 0.4 x10^3/uL (0.0-1.1); MONO % 8 % (0-9); NEUT # 2.8 x10^3uL (1.8-7.7); NEUT % 53 % (31-73); PLATELET COUNT 198 x10^3/uL (140-400); RED CELL DISTRIBUTION WIDTH 13.5 % (11.5-14.5); WHITE BLOOD COUNT 5.2 x10^3/uL (4.0-11.0)
[2019-07-17 22:53] LABS: CALCIUM 9.5 mg/dL (8.5-10.1); CREATININE 1.3 mg/dL (0.7-1.3); GFR 63.6; POTASSIUM 3.9 mmol/L (3.5-5.1)
[2019-07-17 22:58] LABS: ALBUMIN 3.7 g/dL (3.4-5.0); ALBUMIN/GLOBULIN RATIO 1.2 (1.0-1.7); TOTAL BILIRUBIN 0.5 mg/dL (0.2-1.0); TOTAL PROTEIN 6.8 g/dL (6.4-8.2)
[2019-07-17] MEDS ORDERED: PANTOPRAZOLE IV 40 MG VIAL. IVP ONE (23:00)
[2019-07-17] MEDS ORDERED: IOHEXOL 300 MG/ML 75 ML VIAL. IV ONE (23:00)
[2019-07-17] MEDS ORDERED: IV NORMAL SALINE 1,000ML 1,000 ML IV ONE (23:00)
--- NOTE | 2019-07-17 23:31 | RAD ---
CT SCAN OF THE ABDOMEN AND PELVIS WITH IV CONTRAST. History: Lower abdominal pain Comparison:None. Procedure: Contiguous axial images of the abdomen and pelvis were performed after the administration of 75 cc of Omni 300 IV contrast. Oral contrast: No. Findings: The gallbladder is collapsed but otherwise appears normal. The appendix is small and difficult to visualize but appears normal. Liver: Unremarkable Spleen: Unremarkable Pancreas: Unremarkable Adrenal Glands: Unremarkable Kidneys: Unremarkable There is no mass or lymphadenopathy. There is no free air. There is no free fluid. The urinary bladder appears normal. Impression: No acute findings. PQRS Compliance Statement: One or more of the following individualized dose reduction techniques were utilized for this examination: 1. Automated exposure control 2. Adjustment of the mA and/or kV according to patient size 3. Use of iterative reconstruction technique Electronically signed by: Chris Boyd III, MD (07/17/2019 11:28 PM) [id number]
[2019-07-17 23:55] VITALS: BP 112/60
== END 2019-07-18 00:03 | disposition home or self-care (01) ==
LOC: ER 21:44
DX: K62.5 Hemorrhage of anus and rectum (principal); K21.9 Gastro-esophageal reflux disease without esophagitis; F17.210 Nicotine dependence, cigarettes, uncomplicated; Z88.8 Allergy status to other drugs, medicaments and biological substances
CPT/HCPCS: 36415; 74177; 80053; 85025; 96374; 99285; C9113; Q9967; J7030

== ENCOUNTER 2019-09-24 14:16 | Emergency (ER) | payer SELFPAY ==
[~2019-09-24] VITALS: Ht 180.3 cm; Wt 80.5 kg
[~2019-09-24 14:16] MED LIST changes: +PANT40TA5 PO
[2019-09-24 15:02] LABS: BASO % 1 % (0-3); EOS # 0.1 x10^3/uL (0.0-0.7); EOS % 1 % (0-3); HEMATOCRIT 44.5 % (39.0-53.0); HEMOGLOBIN 15.3 g/dL (13.0-17.5); LYMPH # 1.5 x10^3/uL (1.0-4.8); LYMPH % 34 % (24-48); MEAN CORPUSCULAR HEMOGLOBIN 31 pg (25-35); MEAN CORPUSCULAR HGB CONC 34 g/dL (31-37); MEAN CORPUSCULAR VOLUME 89 fL (79-100); MONO # 0.3 x10^3/uL (0.0-1.1); MONO % 7 % (0-9); NEUT # 2.5 x10^3uL (1.8-7.7); NEUT % 57 % (31-73); PLATELET COUNT 199 x10^3/uL (140-400); RED BLOOD COUNT 4.99 x10^6/uL (4.30-5.70); RED CELL DISTRIBUTION WIDTH 13.7 % (11.5-14.5); WHITE BLOOD COUNT 4.5 x10^3/uL (4.0-11.0)
--- NOTE | 2019-09-24 15:03 | RAD ---
INDICATION: Shortness of breath COMPARISON: March 29, 2019 FINDINGS: Single view of chest obtained. No focal airspace consolidation. Cardiomediastinal contour unremarkable. No acute osseous abnormality. IMPRESSION: * No focal airspace consolidation or edema. Electronically signed by: Taqueria Davison MD (09/24/2019 3:00 PM) [id number]
[2019-09-24 15:13] LABS: CALCIUM 9.6 mg/dL (8.5-10.1); GFR 86.1; POTASSIUM 3.6 mmol/L (3.5-5.1)
[2019-09-24 15:19] LABS: ALBUMIN/GLOBULIN RATIO 1.3 (1.0-1.7); TOTAL PROTEIN 7.1 g/dL (6.4-8.2)
--- NOTE | 2019-09-24 15:25 | PHYS DOC ---
Past History Past Medical History: Anxiety, Asthma, UTI, Other Additional Past Medical Histor: hemorrhoids Past Surgical History: No Surgical History Smoking: Cigarettes, Greater than 1 pack/day Alcohol Use: Occasionally Drug Use: None General Adult EDM: Chief Complaint: SHORTNESS OF BREATH HPI: HPI: 34-year-old male presents emergency room with shortness of breath and concern for COVID-19. Patient just found out that he has been around someone who tested positive. He is now feeling short of breath and is very concerned. I have personally seen in the emergency room a couple times in the last week for a an unrelated issue. Patient denies cough. He has not had a fever at home. He feels like he is generally weak. Review of Systems: Review of Systems: Constitutional: Denies fever or chills Eyes: Denies change in visual acuity HENT: Denies nasal congestion or sore throat Respiratory: Shortness of breath Cardiovascular: Denies chest pain or edema GI: Denies abdominal pain, nausea, vomiting, bloody stools or diarrhea : Denies dysuria Musculoskeletal: Denies back pain or joint pain Integument: Denies rash Neurologic: Denies headache, focal weakness or sensory changes Endocrine: Denies polyuria or polydipsia Lymphatic: Denies swollen glands Psychiatric: Denies depression or anxiety Heart Score: Risk Factors: Risk Factors: DM, Current or recent (<one month) smoker, HTN, HLP, family history of CAD, obesity. Risk Scores: Score 0 - 3: 2.5% MACE over next 6 weeks - Discharge Home Score 4 - 6: 20.3% MACE over next 6 weeks - Admit for Clinical Observation Score 7 - 10: 72.7% MACE over next 6 weeks - Early Invasive Strategies Allergies: Allergies: Allergies Coded Allergies Type Severity Reaction Last Updated Verified prednisone Adverse Reaction Intermediate 09/24/19 Yes Physical Exam: PE: Constitutional: Well developed, well nourished, no acute distress, non-toxic appearance. [] HENT: Normocephalic, atraumatic, bilateral external ears normal, oropharynx moist, no oral exudates, nose normal. [] Eyes: PERRLA, EOMI, conjunctiva normal, no discharge. [] Neck: Normal range of motion, no tenderness, supple, no stridor. [] Cardiovascular: Heart rate regular rhythm, no murmur [] Lungs & Thorax: Deferred due to isolation precautions [] Abdomen: Bowel sounds normal, soft, no tenderness, no masses, no pulsatile masses. [] Skin: Warm, dry, no erythema, no rash. [] Back: No tenderness, no CVA tenderness. [] Extremities: No tenderness, no cyanosis, no clubbing, ROM intact, no edema. [] Neurologic: Alert and oriented X 3, normal motor function, normal sensory function, no focal deficits noted. [] Psychologic: Affect normal, judgement normal, mood normal. [] Current Patient Data: Labs: Laboratory Tests Test 09/24/19 14:45 White Blood Count 4.5 x10^3/uL (4.0-11.0) Red Blood Count 4.99 x10^6/uL (4.30-5.70) Hemoglobin 15.3 g/dL (13.0-17.5) Hematocrit 44.5 % (39.0-53.0) Mean Corpuscular Volume 89 fL (79-100) Mean Corpuscular Hemoglobin 31 pg (25-35) Mean Corpuscular Hemoglobin Concent 34 g/dL (31-37) Red Cell Distribution Width 13.7 % (11.5-14.5) Platelet Count 199 x10^3/uL (140-400) Neutrophils (%) (Auto) 57 % (31-73) Lymphocytes (%) (Auto) 34 % (24-48) Monocytes (%) (Auto) 7 % (0-9) Eosinophils (%) (Auto) 1 % (0-3) Basophils (%) (Auto) 1 % (0-3) Neutrophils # (Auto) 2.5 x10^3uL (1.8-7.7) Lymphocytes # (Auto) 1.5 x10^3/uL (1.0-4.8) Monocytes # (Auto) 0.3 x10^3/uL (0.0-1.1) Eosinophils # (Auto) 0.1 x10^3/uL (0.0-0.7) Basophils # (Auto) 0.0 x10^3/uL (0.0-0.2) Sodium Level 141 mmol/L (136-145) Potassium Level 3.6 mmol/L (3.5-5.1) Chloride Level 104 mmol/L (98-107) Carbon Dioxide Level 29 mmol/L (21-32) Anion Gap 8 (6-14) Blood Urea Nitrogen 16 mg/dL (8-26) Creatinine 1.0 mg/dL (0.7-1.3) Estimated GFR (Cockcroft-Gault) 86.1 BUN/Creatinine Ratio 16 (6-20) Glucose Level 89 mg/dL (70-99) Calcium Level 9.6 mg/dL (8.5-10.1) Total Bilirubin Pending Aspartate Amino Transferase (AST) Pending Alanine Aminotransferase (ALT) Pending Alkaline Phosphatase Pending Total Protein Pending Albumin Pending Albumin/Globulin Ratio Pending Vital Signs: Vital Signs Date Time Temp Pulse Resp B/P (MAP) Pulse Ox O2 Delivery O2 Flow Rate FiO2 09/24/19 14:16 97.9 76 18 112/71 (85) 97 Room Air EKG: EKG: [] Radiology/Procedures: Radiology/Procedures: [] Impressions: INDICATION: Shortness of breath COMPARISON: March 29, 2019 FINDINGS: Single view of chest obtained. No focal airspace consolidation. Cardiomediastinal contour unremarkable. No acute osseous abnormality. IMPRESSION: * No focal airspace consolidation or edema. Electronically signed by: Esme Davison MD (09/24/2019 3:00 PM) [id number] DICTATED AND SIGNED BY: ESME DAVISON MD DATE: 09/24/19 1500 CC: LETICIA MASTERSON DO; ALEXA REYNOLDS MD ~ Course & Med Decision Making: Course & Med Decision Making Pertinent Labs and Imaging studies reviewed. (See chart for details) The patient's chest x-ray is negative for acute findings. His labs are unremarkable. The patient may have COVID-19. I cannot rule that out. He does not meet criteria for admission or testing for our hospital. I have advised that he can go to the health department if he would like to get walk-in testing. He should quarantine at home for 14 days or until he is symptom-free for 3 days. He is stable for discharge at this time. [] Dragon Disclaimer: Dragon Disclaimer: This electronic medical record was generated, in whole or in part, using a voice recognition dictation system. Departure Departure: Impression: Primary Impression: Shortness of breath Disposition: 01 HOME/RESIDENCE PRIOR TO ADM Condition: STABLE Referrals: ALEXA REYNOLDS MD (PCP) Patient Instructions: Shortness of Breath, [id number] LETICIA MASTERSON DO September 24, 2019 15:25
[2019-09-24 16:28] VITALS: BP 129/78
== END 2019-09-24 16:15 | disposition home or self-care (01) ==
LOC: ER 14:16
DX: R06.02 Shortness of breath (principal); J45.909 Unspecified asthma, uncomplicated; F17.210 Nicotine dependence, cigarettes, uncomplicated; Z87.440 Personal history of urinary (tract) infections; Z88.0 Allergy status to penicillin
CPT/HCPCS: 36415; 71045; 80053; 83605; 85025; 85379; 87040; 99284

== ENCOUNTER 2020-11-01 18:46 | Emergency (ER) | payer SELFPAY ==
[~2020-11-01] VITALS: Ht 180.3 cm; Wt 82.7 kg
[~2020-11-01 18:46] MED LIST changes: -PANT40TA5 PO; +PANT40TA6 PO
[2020-11-01] MEDS ORDERED: KETOROLAC 15 MG/ML VIAL. IVP ONE (19:00)
[2020-11-01] MEDS ORDERED: diphenhydrAMINE 50 MG/ML VIAL IVP ONE (19:00)
[2020-11-01] MEDS ORDERED: METOCLOPRAMIDE HCL 10 MG/2 ML VIAL. IVP ONE (19:00)
[2020-11-01] MEDS ORDERED: IV NORMAL SALINE 1,000ML 1,000 ML IV ONE (19:00)
--- NOTE | 2020-11-01 19:11 | PHYS DOC ---
Past History Past Medical History: Anxiety, Asthma, UTI, Other Additional Past Medical Histor: hemorrhoids Past Surgical History: No Surgical History Smoking: Cigarettes, Greater than 1 pack/day Additional Smoking Information: 1.5 PACKS/DAY Alcohol Use: None Drug Use: None General Adult EDM: Chief Complaint: NEAR SYCOPE HPI: HPI: 35-year-old male presents with 2-week history of intermittent dizziness. Patient also reports associated headaches during this time. Patient reports dizziness worse with movement of his eyes and head. Patient reports using [id number] meclizine type medication without significant improvement. Patient reports became worse tonight to the point he fell. Patient does report hitting his head. Denies loss of consciousness. Denies use of blood thinners. Denies chest pain. Denies neck pain. Denies fever or chills. Patient reports some nausea without vomiting. Review of Systems: Review of Systems: Constitutional: Denies fever or chills Eyes: Denies redness or eye pain HENT: Denies sore throat; reports recent sinus pressure Respiratory: Denies cough or shortness of breath Cardiovascular: Denies chest pain or palpitations GI: Denies abdominal pain or vomiting; reports nausea : Denies dysuria or hematuria Musculoskeletal: Denies back pain or joint pain Integument: Denies rash or skin lesions Neurologic: Denies focal weakness or sensory changes; reports headache and dizziness Complete systems were reviewed and found to be within normal limits, except as documented in this note. Current Medications: Current Meds: Current Medications Medications (Trade) Dose Ordered Sig/Justice Start Time Stop Time Status Last Admin Dose Admin Diphenhydramine HCl (Benadryl) 25 mg 1X ONCE 11/01/20 19:00 11/01/20 19:01 UNV Ketorolac Tromethamine (Toradol 15mg Vial) 15 mg 1X ONCE 11/01/20 19:00 11/01/20 19:01 UNV Metoclopramide HCl (Reglan Vial) 10 mg 1X ONCE 11/01/20 19:00 11/01/20 19:01 UNV Sodium Chloride 1,000 ml @ 1,000 mls/hr 1X ONCE 11/01/20 19:00 11/01/20 19:59 UNV Allergies: Allergies: Allergies Coded Allergies Type Severity Reaction Last Updated Verified prednisone Adverse Reaction Intermediate 09/24/19 Yes Physical Exam: PE: Constitutional: Well developed, well nourished, no acute distress, non-toxic appearance HENT: Normocephalic, atraumatic, TMs without active infection, nares with mild congestion Eyes: PERRL, EOMI, conjunctiva normal, no discharge, no nystagmus noted Neck: Normal range of motion, no tenderness, supple Lungs & Thorax: No respiratory distress, equal chest rise and fall Abdomen: Soft, no tenderness Skin: Warm, dry, no erythema, no rash Extremities: No tenderness, ROM intact, no edema Neurologic: Alert and oriented X 3, normal motor function, normal sensory function, no focal deficits noted, cerebellar function intact Psychologic: Affect normal, judgment normal Current Patient Data: Vital Signs: Vital Signs Date Time Temp Pulse Resp B/P (MAP) Pulse Ox O2 Delivery O2 Flow Rate FiO2 11/01/20 18:50 98.2 96 20 139/90 (106) 100 Room Air EKG: EKG: @1926 NSR at 67bpm, NO ST elevation, QRS 90ms, QT/QTc 374/398ms Radiology/Procedures: Radiology/Procedures: PROCEDURE: CT HEAD WO CONTRAST Exam: CT head INDICATION: Dizziness TECHNIQUE: Sequential axial images through the head were obtained without the administration of IV contrast. Exposure: One or more of the following in the visualized dose reduction techniques were utilized for this examination: 1. Automated exposure control 2. Adjustment of the MA and/or KV according to patient size 3. Use of iterative of reconstructive technique Comparisons: None FINDINGS: No focal parenchymal lesion or hemorrhage is identified. There is no midline shift or sulcal effacement. Asymmetric hyperdensity within the right transverse sinus. No acute vascular territory infarction is identified. Santamaria-white distinction is preserved. The ventricular system is within normal limits without compression hydrocephalus. The basal cisterns are well maintained. The visualized portions of the paranasal sinuses and mastoid air cells are well- pneumatized. No acute fractures. IMPRESSION: Mild asymmetric prominence of the right transverse sinus which appears mildly hyperdense. Findings could be artifactual in nature. Correlate with symptomatology to determine need for further evaluation with CTV/MRV for thrombus. Electronically signed by: Moy Urban MD (11/01/2020 7:30 PM) [facility] PROCEDURE: CT HEAD W/CONTRAST Exam: CTV head INDICATION: Dizziness, abnormal head CT TECHNIQUE: Sequential axial images through the head were obtained without the administration of IV contrast. Exposure: One or more of the following in the visualized dose reduction techniques were utilized for this examination: 1. Automated exposure control 2. Adjustment of the MA and/or KV according to patient size 3. Use of iterative of reconstructive technique Comparisons: None FINDINGS: No large focal parenchymal lesion or hemorrhage is identified. There is no midline shift or sulcal effacement. No large acute vascular territory infarction is identified. Santamaria-white distinction is preserved. The ventricular system is within normal limits without compression hydrocephalus. The basal cisterns are well maintained. The visualized portions of the paranasal sinuses and mastoid air cells are well- pneumatized. No acute fractures. Dural venous sinuses are patent. IMPRESSION: Patent dural venous sinuses. No evidence for thrombus. Electronically signed by: Moy Urban MD (11/01/2020 8:56 PM) [facility] Heart Score: C/O Chest Pain: N/A Course & Med Decision Making: Course & Med Decision Making Pertinent Labs and Imaging studies reviewed. (See chart for details) Patient presents with intermittent dizziness x2 weeks with associated headache. Patient neurologically intact. NIHSS 0. Symptomatic treatment ordered which patient declined. IV fluid hydration given. CT head with asymmetry with radiology report but cannot exclude sinus thrombus. Radiologist recommendation for CT venogram. Labs obtained and posted to chart. CT venogram head without acute process. Prior to discharge patient requesting GI cocktail. Hx of gastritis. Reports has medication at home. Reports has received GI cocktail in past with improvement of symptoms. Patient stable for discharge with outpatient follow-up with PCP/ENT/Neurology. ENT and neurology referrals provided. Discussed findings and plan with patient, who acknowledges understanding and agreement. Lei Disclaimer: Lei Disclaimer: This electronic medical record was generated, in whole or in part, using a voice recognition dictation system. Departure Departure: Impression: Primary Impression: Dizziness Additional Impressions: Headache Qualified Codes: R51.9 - Headache, unspecified Gastritis Qualified Codes: K29.50 - Unspecified chronic gastritis without bleeding Disposition: HOME / SELF CARE / HOMELESS Condition: STABLE Referrals: ALEXA REYNOLDS MD (PCP) JEREMY MCKINNON MD Patient Instructions: Dizziness, [id number], Gastritis, Adult, Sqvi-wj-Iwvx, Headache, FAQs, Vertigo, [id number] Additional Instructions: Increase fluid hydration. If symptoms persist may benefit from follow-up with ENT: Dr. Gala Davison [address] [facility], [address] [place] [address] Scripts Butalb/Acetaminophen/Caffeine ([id number] 50-325-40) 1 Each Tablet 1 EACH PO Q6HRS PRN for HEADACHE, #14 TAB Prov: MARGAUX VALENZUELA DO 11/01/20 Meclizine Hcl (MECLIZINE HCL) 25 Mg Tablet 1 TAB PO TID PRN for DIZZINESS, #20 TAB Prov: MARGAUX VALENZUELA DO 11/01/20 NIHSS - ED NIH Stroke Scale: NIH Stroke Scale Response (Comments) Value Level of Consciousness: 0 Alert/Responsive 0 LOC Questions: 0 Answers both correctly 0 LOC Commands: 0 Performs both tasks 0 Best Gaze: 0 Normal 0 Visual: 0 No visual loss 0 Facial Palsy: 0 Normal, symmetrical 0 Motor - Left Arm 0 No drift 0 Motor - Right Arm 0 No drift 0 Motor - Left Leg 0 No drift 0 Motor: Right Leg 0 No drift 0 Limb Ataxia: 0 Absent 0 Sensory: 0 No loss 0 Best Language: 0 Normal 0 Dysathria: 0 Normal 0 Extinction and Inattention: 0 Normal 0 Total 0 MARGAUX VALENZUELA DO Nov 01, 2020 19:11
--- NOTE | 2020-11-01 19:32 | RAD ---
Exam: CT head INDICATION: Dizziness TECHNIQUE: Sequential axial images through the head were obtained without the administration of IV co ntrast. Exposure: One or more of the following in the visualized dose reduction techniques were utilized for this examination: 1. Automated exposure control 2. Adjustment of the MA and/or KV according to patient size 3. Use of iterative of reconstructive technique Comparisons: None FINDINGS: No focal parenchymal lesion or hemorrhage is identified. There is no midline shift or sulcal effaceme nt. Asymmetric hyperdensity within the right transverse sinus. No acute vascular territory infarction is identified. Santamaria-white distinction is preserved. The ventricular system is within normal limits without compression hydrocephalus. The basal cisterns are well maintained. The visualized portions of the paranasal sinuses and mastoid air cells are well-pneumatized. No acute fractures. IMPRESSION: Mild asymmetric prominence of the right transverse sinus which appears mildly hyperdense. Findings co uld be artifactual in nature. Correlate with symptomatology to determine need for further evaluation with CTV/MRV for thrombus. Electronically signed by: Moy Urban MD (11/01/2020 7:30 PM) [facility]
[2020-11-01 19:36] LABS: BASO % 0 % (0-3); EOS # 0.1 x10^3/uL (0.0-0.7); EOS % 2 % (0-3); HEMOGLOBIN 16.8 g/dL (13.0-17.5); LYMPH # 2.2 x10^3/uL (1.0-4.8); LYMPH % 37 % (24-48); MEAN CORPUSCULAR HEMOGLOBIN 30 pg (25-35); MEAN CORPUSCULAR HGB CONC 34 g/dL (31-37); MEAN CORPUSCULAR VOLUME 89 fL (79-100); MONO # 0.5 x10^3/uL (0.0-1.1); MONO % 8 % (0-9); NEUT # 3.2 x10^3uL (1.8-7.7); NEUT % 53 % (31-73); PLATELET COUNT 219 x10^3/uL (140-400); RED BLOOD COUNT 5.51 x10^6/uL (4.30-5.70); RED CELL DISTRIBUTION WIDTH 13.4 % (11.5-14.5)
[2020-11-01 19:47] LABS: CALCIUM 9.1 mg/dL (8.5-10.1); GFR 85.5; POTASSIUM 4.4 mmol/L (3.5-5.1)
[2020-11-01 19:52] LABS: BACTERIA,URINE 0 /HPF (0-FEW); BILIRUBIN,URINE NEG (NEG); CLARITY,URINE CLEAR; COLOR,URINE YELLOW; GLUCOSE,URINE NEG (NEG); NITRITE,URINE NEG (NEG); RBC,URINE 0 /HPF (0-2); SQUAMOUS EPITHELIAL CELL,UR OCC /LPF; UROBILINOGEN,URINE 0.2 mg/dL (0.2 mg/dL)
[2020-11-01] MEDS ORDERED: IOHEXOL 300 MG/ML 75 ML VIAL. IV ONE (20:00)
[2020-11-01 20:04] LABS: ALBUMIN 4.1 g/dL (3.4-5.0); ALBUMIN/GLOBULIN RATIO 1.5 (1.0-1.7); MAGNESIUM 2.2 mg/dL (1.8-2.4); TOTAL BILIRUBIN 0.5 mg/dL (0.2-1.0); TOTAL PROTEIN 6.9 g/dL (6.4-8.2)
[2020-11-01 20:50] VITALS: BP 136/82
--- NOTE | 2020-11-01 20:58 | RAD ---
Exam: CTV head INDICATION: Dizziness, abnormal head CT TECHNIQUE: Sequential axial images through the head were obtained without the administration of IV co ntrast. Exposure: One or more of the following in the visualized dose reduction techniques were utilized for this examination: 1. Automated exposure control 2. Adjustment of the MA and/or KV according to patient size 3. Use of iterative of reconstructive technique Comparisons: None FINDINGS: No large focal parenchymal lesion or hemorrhage is identified. There is no midline shift or sulcal ef facement. No large acute vascular territory infarction is identified. Santamaria-white distinction is preserved. The ventricular system is within normal limits without compression hydrocephalus. The basal cisterns are well maintained. The visualized portions of the paranasal sinuses and mastoid air cells are well-pneumatized. No acute fractures. Dural venous sinuses are patent. IMPRESSION: Patent dural venous sinuses. No evidence for thrombus. Electronically signed by: Moy Urban MD (11/01/2020 8:56 PM) [facility]
[2020-11-01] MEDS ORDERED: BUTA1TAB23 PO (21:05)
[2020-11-01] MEDS ORDERED: MECL-75 PO (21:05)
[2020-11-01] MEDS ORDERED: LIDO:MAALOX 1:1 20 ML SINGLE DOSE. PO ONE (21:15)
[2020-11-01] MEDS ORDERED: LIDO:MAALOX 1:1 20 ML SINGLE DOSE. ONE (21:20)
--- NOTE | 2020-11-01 21:58 | EKG ---
[address] [address] Test Date: 2020-11-01 Test Time: 19:26:02 Pat Name: PRATIK HUNT Department: Room: Gender: M Rn Pediatric Icu: : 1985 Requested By: MARGAUX VALENZUELA Order Number: [id number] Reading MD: Measurements Intervals Fowler Rate: 67 P: 45 DC: 210 QRS: 43 QRSD: 90 T: 32 QT: 374 QTc: 398 Interpretive Statements SINUS RHYTHM OTHERWISE NORMAL ECG RI6.02 No previous ECG available for comparison
== END 2020-11-01 21:20 | disposition home or self-care (01) ==
LOC: ER 18:46
DX: K29.50 Unspecified chronic gastritis without bleeding (principal); R42 Dizziness and giddiness; R51.9 Headache, unspecified; J45.909 Unspecified asthma, uncomplicated; Z87.440 Personal history of urinary (tract) infections; F41.9 Anxiety disorder, unspecified; F17.210 Nicotine dependence, cigarettes, uncomplicated; Z88.8 Allergy status to other drugs, medicaments and biological substances
CPT/HCPCS: 36415; 70450; 70460; 80053; 81001; 82553; 83735; 84484; 85025; 93005; 96360; 99285; J7030; Q9967